=== PATIENT | female | born 1975 | race Caucasian/White ===

== ENCOUNTER 2021-01-19 15:22 | Emergency (ER) | payer MEDICAID, SELFPAY ==
[2021-01-19 15:24] VITALS: BP 141/88; PULSE 77; RESP 16; TEMP 36.9; O2SAT 96; BMI 46.5
[2021-01-19 16:00] VITALS: BP 141/88; PULSE 77; RESP 16; TEMP 36.9; O2SAT 96; BMI 46.6
--- NOTE | 2021-01-19 17:11 | HMH.EDUTC ---
[facility] Disposition Clinical Impression: Laceration of right middle finger Qualifiers: Encounter type: initial encounter Damage to nail status: without damage Foreign body presence: without foreign body Qualified Code(s): S61.212A - Laceration without foreign body of right middle finger without damage to nail, initial encounter Disposition: Home, Self-Care Condition on Discharge: Good Instructions: How to Care for a Laceration After Repair, DI for Laceration Repair -- Simple Additional Instructions: Keep the wound clean and dry. Keep a dressing on it if you are going to be getting it dirty. Watch the for signs of infection, such as redness, swelling, drainage, fever. etc. Take tylenol or ibuprofen for pain. Follow up with your regular doctor. Return in 10 days to have the sutures removed. GO TO THE ER FOR ANY WORSENING SYMPTOMS OR CONCERNS. Prescriptions: cephALEXin [cephALEXin 500mg capsule] 500 mg PO Q6H 10 Days #40 cap Transmission Status: Received by [id number] Referrals: Shiela Manrique [Primary Care Provider] - Time of Disposition: 17:42 Medical Decision Making - Medical Records Medical records reviewed: No: I reviewed the patient's medical records. - Trell Inquiry Pt receiving controlled substance: No Vital Signs: 01/19/21 15:24 01/19/21 16:00 01/19/21 17:45 Temperature 98.4 F 98.4 F 98.4 F Temperature Source Oral Oral Pulse Rate 77 Pulse Rate [Left Radial] 77 77 Respiratory Rate 16 16 16 Blood Pressure 141/88 H Blood Pressure [Left Arm] 141/88 H 141/88 H Blood Pressure Mean [Left Arm] 105 105 Blood Pressure Source [Left Arm] Automatic Cuff Automatic Cuff Blood Pressure Position [Left Arm] Sitting Sitting 02 Sat by Pulse Oximetry 96 96 Oxygen Delivery Method Room Air Room Air Orders (Tests/Meds): ED MEDICATIONS Discontinued Medications Generic Name Dose Route Start Last Admin Trade Name Freq PRN Reason Stop Dose Admin Ibuprofen 800 mg 01/19/21 17:44 01/19/21 17:50 Ibuprofen 400 Mg Tablet PO 01/19/21 17:45 800 mg ONCE ONE Administration [facility] HPI - General Stated complaint: AO cut R finger on open can 1500 Time Seen by Provider: 01/19/21 15:35 Mode of Arrival: Ambulatory Source of Information: Patient Limitations: No Limitations Description of Symptoms (Recalled from Triage Doc. by RN): PATIENT C/O LACERATION TO RIGHT MIDDLE FINGER. STATES SHE CUT IT WHILE OPENING A CAN OF BEANS HEENT Symptoms (Recalled from RN notes): No Resp Symptoms (Recalled from RN notes): No Skin Symptoms (Recalled from RN notes): Yes MS Symptoms (Recalled from RN notes): No Functional Status (Recalled from RN notes): WNL - History of Present Illness Provider Complaint: She was opening a can of beans at home when she slipped and cut her right middle finger. Her tetanus immunization is up to date. - Related Data Previous Rx's Medication Instructions Recorded cephALEXin [cephALEXin 500mg 500 mg PO Q6H 10 Days #40 cap 01/19/21 capsule] Allergies Allergy/AdvReac Type Severity Reaction Status Date / Time No Known Allergies Allergy Verified 01/19/21 16:27 - Worker's Comp Is this a Worker's Comp case?: No [facility] History - Hepatitis A Screen Drug use history?: No High risk sexual behaviors?: No History of sexually transmitted infection?: No Currently employed?: No Childcare worker?: No Do you have indoor plumbing?: Yes Do you have electricity?: Yes Attestation statement:: This patient has been screened for Hepatitis A risk factors. I have reviewed the patient's past medical history: Yes ROS Obtained: Yes All systems reviewed & no additional complaints - Constitutional Constitutional: Denies chills, Denies fever(s) - Eyes Eyes: Denies eye discharge - Musculoskeletal Musculoskeletal: Denies joint pain - Integumentary/Breasts Skin/Breast: Reports as per HPI Physical Exam - General General appearance: alert, in
[2021-01-19 17:45] VITALS: BP 141/88; PULSE 77; RESP 16; TEMP 36.9; O2SAT 96
== END 2021-01-19 17:55 | disposition home or self-care (01) ==
LOC: ER 15:36 → UTC 15:36
PROVIDERS: Emergency Provider Nurse Practitioner Family; PCP Family Medicine
DX: S61.212A Laceration without foreign body of right middle finger without damage to nail, initial encounter (principal); W26.8XXA Contact with other sharp object(s), not elsewhere classified, initial encounter; Y92.010 Kitchen of single-family (private) house as the place of occurrence of the external cause
CPT/HCPCS: 12001; 99202; G0463

== ENCOUNTER 2022-06-09 11:51 | Emergency (ER) | payer MEDICAID, SELFPAY ==
[2022-06-09 12:19] VITALS: BP 174/102; PULSE 71; RESP 18; O2SAT 95; BMI 49.9
--- NOTE | 2022-06-09 12:29 | XR_ITS ---
PROCEDURE INFORMATION: Exam: XR Right Knee Exam date and time: 06/09/2022 12:25 PM Age: 46 years old Clinical indication: Injury or trauma; Fall; Blunt trauma; Patient HX: Obese female patient fell off of porch, right knee pain. TECHNIQUE: Imaging protocol: Radiologic exam of the right knee. Views: 3 views. COMPARISON: No relevant prior studies available. FINDINGS: Bones/joints: No acute fracture or dislocation. Small knee joint effusion. Minimal narrowing of the lateral knee joint space. No significant bony arthritic deformities at the tibiofemoral or patellofemoral joint. There are no lytic skeletal lesions seen. Soft tissues: Soft tissue swelling. No radiopaque foreign bodies. No pathologic soft tissue calcification. IMPRESSION: 1. No acute fracture or dislocation. 2. Small knee joint effusion.
[2022-06-09 12:41] VITALS: BP 174/98; PULSE 71; RESP 18; TEMP 36.8; O2SAT 95; BMI 49.9
--- NOTE | 2022-06-09 12:54 | EXP.UTC ---
Discharge Plan Disposition Patient Disposition: Home, Self-Care Condition: Good Prescriptions Prescriptions: No Action cephalexin 500 MG capsule 500 mg PO Q6H 10 Days Qty: 40 0RF Referrals Follow up/Referrals: Anu Cortés [Primary Care Provider] - See instructions Activity Restrictions/Add. Instructions Additional Instructions/Restrictions: *weight bearing as tolerated *RICE, Rest the extremity, Ice 15-20 minutes 3-4 times daily, Compress- wear the tim wrap as discussed as much as possible to help reduce swelling and pain, Elevate the extremity when at rest *Knee immobilizer is for support and help control swelling, use it except in the shower. Be sure that is not to tight but not to loose either *Elevate when resting? *Ibuprofen 600-800mg every 6-8 hours as needed for pain an inflammation. If need something more can take Tylenol in between doses of Ibuprofen to help if you can take it Follow up with your Family Doctor if no improvement or any worsening of symptoms Clinical Impressions Clinical Impression: Effusion of knee Qualifiers: Laterality: right Qualified Code(s): M25.461 - Effusion, right knee Instructions Patient Instructions: DI for Knee Effusion, Ibuprofen Discharge ED Provider: Radha Dorantes [facility] General Stated complaint: AO@home 06/02 RT knee pain Mode of Arrival: Ambulatory Source of Information: Patient Limitations: No Limitations Time Seen by Provider: 06/09/22 12:54 Description of Symptoms (Recalled from Triage Doc. by RN): fell about a week ago and hurt right knee HEENT Symptoms (Recalled from RN notes): No Resp Symptoms (Recalled from RN notes): No Skin Symptoms (Recalled from RN notes): No MS Symptoms (Recalled from RN notes): Yes Functional Status (Recalled from RN notes): n/a History of Present Illness Provider Complaint: Patient state that she fell about a week ago and fell and hurt her right knee States that she has been having pain in her right knee ever since that is worse when she stands on it or tries to roll over in bed at night States that pain feels like it is inside her knee Related Data Previous Rx's Medication Instructions Recorded cephalexin 500 mg capsule 500 mg PO Q6H 10 days #40 caps 01/19/21 Allergies Allergy/AdvReac Type Severity Reaction Status Date / Time No Known Allergies Allergy Verified 01/19/21 16:27 Worker's Comp Is this a Worker's Comp case?: No [facility] Disclaimer: The information contained in this section may have been updated after the patient was seen, as this information can be updated by other users. Social History Smoking Status: Unknown if ever smoked alcohol intake: never current occupational status: employed Travel in the last 8 weeks: None ROS Obtained: Yes All systems reviewed & no additional complaints except as documented and Yes Systems reviewed as appropriate & no additional complaints except as documented Constitutional Constitutional: Reports system reviewed and no additional complaints, except as documented and Reports as per HPI ENT Ears, Nose, Mouth, and Throat: Reports system reviewed and no additional complaints, except as documented and Reports as per HPI Cardiovascular Cardiovascular: Reports system reviewed and no additional complaints, except as documented and Reports as per HPI Respiratory Respiratory: Reports system reviewed and no additional complaints, except as documented and Reports as per HPI Gastrointestinal Gastrointestingal: Reports system reviewed and no additional complaints, except as documented and as per HPI Musculoskeletal Musculoskeletal: Reports system reviewed and no additional complaints, except as documented and Reports as per HPI Comments: pain in right knee since falling last week Physical Exam General General appearance: alert and in no apparent distress Respiratory Respiratory exam: Present normal lung sounds bilaterally; Absent respiratory distress or wheeze
[2022-06-09 13:48] VITALS: BP 146/74; PULSE 71; RESP 18; TEMP 36.8; O2SAT 95
== END 2022-06-09 13:48 | disposition home or self-care (01) ==
LOC: ER 12:21 → UTC 12:21
PROVIDERS: Emergency Provider Nurse Practitioner; PCP Nurse Practitioner Family
DX: M25.461 Effusion, right knee (principal); W19.XXXA Unspecified fall, initial encounter
CPT/HCPCS: 29505; 73562; 99212; 99214; G0463

== ENCOUNTER 2023-05-21 10:03 | Outpatient (CLI) | payer MEDICAID, SELFPAY ==
--- NOTE | 2023-05-21 10:04 | CA_ITS ---
APPROVED REPORT EXAM: Comprehensive 2D, Doppler, and color-flow Echocardiogram Buzzsaw Operator Helper: Ivon Hathaway RVT Ht: 5 ft 5 in Wt: 296lbs BSA: 2.34 BP: 148/70 mmHg Indications: PRE-OP,HTN,EX SMOKER,OBESITY 2D Dimensions LA Volume 42.50 mL LA Volume Index 18.16 mL/m2 (M/F) 16-34 M-Mode Dimensions RVDd 2.95 cm (0.9-2.6) LA Diam 4.45 cm (1.9-4.0) LVDd 4.92 cm (3.5-5.7) LVDs 3.05 cm (3.5-5.7) IVSd 1.50 cm (0.6-1.1) PWd 1.17 cm (0.6-1.1) EF (Teich) 68.00% FS 38.00% EDV (Teich) 113.90 mL TAPSE 2.78 (<1.7) ESV (Teich) 36.40 mL LV Diastology E Decel Time 247 (160-240 msec) E/A Ratio 0.9 Aortic Valve KEVYN Index 1.32 cm2/m2 AoV Peak Jet. 178.0 (50-130 cm/s) AO Peak GR. 12.70 mmHg AO Mean GR. 6.50 (<5 mmHg) AO VTI 38.0 (18-25 cm) KEVYN (VTI) 3.16 (2.5-4.5 cm2) Mitral Valve MV E Max Jet. 86.0 (40-130 cm/s) MV A Velocity 101.0 (40-130 cm/s) E/A Ratio 0.85 MV PHT 72.0 ms Pulmonary Valve PV Peak Velocity 87.0 (50-150 cm/s) Tricuspid Valve TR P. Velocity 295.00 cm/s RAP Estimate 10.00 mmHg RVSP 44.90 mmHg Left Ventricle The left ventricle is normal size. The left ventricular systolic function is normal. The left ventricular ejection fraction is within the normal range. There is increased LV wall thickness. There is normal LV segmental wall motion. Transmitral Doppler flow pattern suggests impaired LV relaxation. LVEF is 55%. Right Ventricle The right ventricle is normal size. The right ventricular systolic function is normal. Atria The left atrium size is normal. The right atrium size is normal. There is no Doppler evidence of interatrial shunt. Aortic Valve The aortic valve opens well. There is no aortic valvular stenosis. Trace aortic regurgitation. Mitral Valve The mitral valve is normal in structure. No evidence of mitral valve stenosis. Trace mitral regurgitation. Tricuspid Valve The tricuspid valve leaflets are thin and pliable. Trace tricuspid regurgitation. There is insufficient TR jet to estimate RVSP. Pulmonic Valve The pulmonary valve is normal in structure. Trace pulmonic regurgitation. Great Vessels The aortic root is normal in size. The ascending aorta is normal in size. IVC is normal in size and collapses >50% with inspiration. Pericardium There is no pericardial effusion. Other Information Study Quality: Fair Conclusion Normal biventricular systolic function. No significant valvular stenosis or regurgitation. Electronically signed by : Davida Bennett MD 05/21/2023 23:59:18
== END 2023-05-21 23:59 ==
LOC: RT 10:04
PROVIDERS: PCP Nurse Practitioner Family; Visit Provider Nurse Practitioner
DX: Z01.810 Encounter for preprocedural cardiovascular examination (principal); I10 Essential (primary) hypertension; Z78.9 Other specified health status
CPT/HCPCS: 93306

== ENCOUNTER 2023-08-26 14:00 | Outpatient (RCR) | payer MEDICAID, SELFPAY | END 2023-08-26 14:05 | disposition home or self-care (01) | LOC: PT 14:00 | PROVIDERS: Visit Provider Orthopaedic Surgery Adult Reconstructive Orthopaedic Surgery | DX: M17.11 Unilateral primary osteoarthritis, right knee (principal) | CPT/HCPCS: 97010; 97014; 97016; 97110; 97140; 97163; 97164; 97530; G0283 ==

== ENCOUNTER 2023-12-29 08:51 | Outpatient (CLI) | payer MEDICAID, SELFPAY ==
--- NOTE | 2023-12-29 09:11 | US_ITS ---
FINAL REPORT TECHNIQUE: Ultrasound images of the abdomen were obtained. CLINICAL HISTORY: ABD PAIN COMPARISON: None FINDINGS: The pancreas is obscured by bowel gas. The liver is unremarkable. The gallbladder is unremarkable. The common duct is normal. The right kidney measures 11.4 cm in length and is normal in echogenicity without hydronephrosis. The left kidney measures 12.8 cm in length and is normal in echogenicity without hydronephrosis. The spleen is unremarkable. The aorta is normal in caliber. The vena cava is unremarkable. IMPRESSION: Fatty infiltration of the liver. Pancreas is obscured by overlying bowel gas. Reviewed, Interpreted and Dictated by Cornelio Pace MD Transcribed by Carmelita Carvalho Authenticated and [facility]
== END 2023-12-29 23:59 | disposition home or self-care (01) ==
LOC: RAD 08:52
PROVIDERS: PCP Nurse Practitioner Family; Visit Provider Nurse Practitioner Family
DX: R10.11 Right upper quadrant pain (principal)
CPT/HCPCS: 76700

== ENCOUNTER 2024-09-28 10:52 | Outpatient (CLI) | payer MEDICAID, SELFPAY ==
--- OUTSIDE RECORDS SUMMARY | 2022-08-11 20:00 | XMS_ITS | Continuity of Care Document ---
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 Name Role Phone Kerry Smith PT Unavailable Unavailable Allergies, Adverse Reactions, Alerts Substance Reaction Status Criticality No Known allergies Medications Medication Instructions Dosage Effective Dates (start - stop) Status Comments ibuprofen 600 mg tablet take 1 tablet by oral route 2 times every day with food 600 MG - Active meloxicam 15 mg tablet take 1 tablet by oral route every day 15 MG - Active Procedures Procedure Date Neuromuscular re-edu Physical Tx exercise PT EVAL LOW COMPLEX 20 MIN Physical Tx exercise Neuromuscular re-edu Office/outpatient visit,est, mod 2022 Ko elas w/ condyle pads & elier Office/outpatient visit,new, mod 2022 Advance Directives Directive Yes / No Effective Date File Name No Information Encounters Encounter Description Practice Location Reason(s) For Visit Diagnoses Date Provider Providers Copied on Encounter [facility], [facility] [place], [address], [place] tel:[phone] No Information 3 Sarah Payne. [address] [place], [place], [id number], [place]. tel:[phone] [facility], [address] [place], [address], [place] tel:[phone] [facility] [place] [facility] Hal[address] Capellan Unsp tear of unsp meniscus, current injury, right knee, subs 3 Mable Longoria. [address] [place], [place], [id number], . tel:[phone] Referring Provider: Ran Rogers, [address] [place], [address] . tel:[phone] [facility], [address] [place] [address], [facility], tel:[phone] [facility] Hal[address] Capellan Unsp tear of unsp meniscus, current injury, right knee, subs 3 Mable Longoria. [address] [place], [place], [id number], [place]. tel:[phone] Referring Provider: Ran Rogers, [address] [place] [address], [address] . tel:[phone] Office/outpat ient visit,est, mod [facility], [address] [place] [address], [facility], [place] tel:[phone] Debra Foss Timi Pain in right knee 3 Aries Tong. [address] [place] [address], [id number], [place]. tel:[phone] Referring Provider: Ran Rogers, [address] [place] [address], [address] . tel:[phone] [facility], [address] [place] [address], [facility], [place] tel:[phone] [place] [facility] No Information 3 Aries Tong. [address] [place] [address], [id number], [place]. tel:[phone] Referring Provider: Ran Rogers, [address] [place] [address], [id number] . tel:[phone] Office/outpat ient visit,new, [facility] [address], [address], tel:[phone] Neda Capellan Pain in right knee 3 Aries Tong. [address], [place], [id number], [place]. tel:[phone] Referring Provider: Ran Rogers, [address] [place], [address] . tel:[phone] Family History Family Member Type Diagnosis Age At Onset Mother Problem (finding) Family history of Osteo arthritis Mother Problem (finding) Renal disease Mother Problem (finding) Family history of Scoli osis Mother Problem (finding) Thyroid disorder Mother Problem (finding) Hypertension Payers Payer name Insurance type Covered constitution party ID Enid briones(s) [employer] Plan - [id number] Social History Type Description Quantity Date Captured Comments Sex Female Smoking Status No Information Chief Complaint And Reason For Visit No Information Reason For Referral Reason For Referral No Information Plan Of Treatment Date Type Action Status Future Order: Radiology Order MR I Knee WO Contrast ([id number]), Ordered on: Ordered History Of Present Illness Encounter Date Complaint History Of Prese nt Illness knee Functional Status Date Functional Assessmen t No Information Instructions Date Instruction Additional Infor mation No Information Assessments Type Assessment Date No Information Patient Care Teams Name Effective Dates (start - stop) Status Members No Information
--- OUTSIDE RECORDS SUMMARY | 2024-09-28 05:30 | XMS_ITS | Continuity of Care Document ---
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 Name Role Phone Tra MASTERSON, FOREIGN EXCHANGE POSITION CLERK, Kerry Unavailable Unavai lable Allergies, Adverse Reactions, Alerts Substance Reaction Status Criticality adhesive tape ItchingSkin rash Active No Informa tion Medications Medication Instructions Dosage Effective Dates (start - stop) Status Comments triamcinolone acetonide 0.1 % topical cream apply by topical route 2 times every day a thin layer to the affected area(s) 0.00 - Active Ozempic 1 mg/dose (4 mg/3 mL) subcutaneous pen injector inject (1MG) by subcutaneous route every week on the same day of each week 1 MG - Active prednisone 10 mg tablets in a dose pack Take 6 tablets on day 1 via oral route, then 5 tabs on day 4, 4 tabs on day 3, 3 tabs on day 4, 2 tabs on day 5 and one tab on day 6. All doses should be taken with food. - Active VITAMIN D3 50 MCG (2000 UT) 50 MCG Capsule Take 1 Capsule by mouth once daily. - Active JARDIANCE 10 MG TABLET 10 Tablet TAKE 1 TABLET BY MOUTH EVERY MORNING - Active metformin ER 500 mg tablet,extended release 24 hr take 1 tablet by oral route every day with the evening meal 500 MG - Active montelukast 10 mg tablet take 1 tablet by oral route every day in the evening 10 MG - Active lisinopril 40 mg tablet Take 1 Tablet by mouth once daily. - Active amlodipine 10 mg tablet Take 1 Tablet by mouth once daily. - Active levothyroxine 50 mcg tablet Take 1 Tablet by mouth once daily. - Active omeprazole 40 mg capsule,delayed release Take 1 capsule by mouth every day before a meal - Active cetirizine 10 mg tablet take 1 tablet by oral route every day 10 MG - Active Advair Diskus 250 mcg-50 mcg/dose powder for inhalation Use 1 puff 2 times every day approximately 12 hours apart at the same times each day - Active propranolol 20 mg tablet Take 1 Tablet by mouth twice daily. - Active vitamin E 670 mg (1,000 unit) capsule Take one capsule daily - Active True Metrix Glucose Meter To use to check BS at least 3 times daily - Active True Metrix Glucose Test Strip To be used with glucometer to check bs up to 3 times daily - Active Alcohol Pads To use to check bs 3 times daily - Active lancets 33 gauge To be used to check bs up to 3 times daily - Active Ventolin HFA 90 mcg/actuation aerosol inhaler inhale 2 puff by inhalation route every 4 - 6 hours as needed 180 MCG - Active Procedures Procedure Date ROUTINE VENIPUNCTURE Advance Directives Directive Yes / No Effective Date File Name No Information Encounters Encounter Description Practice Location Reason(s) For Visit Diagnoses Date Provider [facility], [address] [place] [address], [facility], tel:[phone] foot foot pain (chief complaint) Type 2 diabetes mellitus without complicationsPain in right footBody mass index [BMI] 45.0-49.9, adult 5 Tra Payne. [address] [place], [place], [id number] , . tel:[phone] [facility], [address] [place] [address], [facility], tel:[phone] [facility] Dysuria (chief complaint) DysuriaBody mass index [BMI] 45.0-49.9, adultType 2 diabetes mellitus without complicationsEssential (primary) hypertension 5 Dutta Kerry. [address] [place], [place], [id number] , . tel: [phone] [facility], [address] [place] [address], [facility], tel:[phone] [facility] No Information 5 Dutta Kerry. [address] [place], [place], [id number] , . tel: [phone] [facility], [address] [place] [address], [facility], tel:[phone] [facility] No Information 5 Dutta Kerry. [address] [place], [place], [id number] , [place]. tel: [phone] [place] [address], [address] [place] [address], [facility], tel:[phone] [facility] f/u labs (chief complaint) COPDEssential (primary) hypertensionIron deficiency anemia, unspecifiedNASHObesity, unspecifiedType 2 diabetes mellitus without complicationsVitamin B12 deficiencyVitamin D deficiencyBody mass index [BMI] 45.0-49.9, adult 5 Dutta Kerry. [address] [place], [place], [address] , [place]. tel: [phone] [place] [address], [address] [place] [address], [facility], tel:[phone] [facility] Fasting Labs (chief complaint) Essential (primary) hypertension 5 Dutta Kerry. [address] [place], [place], [address] , [place]. tel: [phone] [facility], [address] [place] [address], [facility], tel:[phone] f/u medication (chief complaint) Obesity, unspecifiedCOPDEssential (primary) hypertensionNASHType 2 diabetes mellitus without complicationsUmbilical hernia without obstruction or gangrene 5 Dutta Kerry. [address] [place], [place], [address] , [place]. tel: [phone] [facility], [address] [place] [address], [facility], tel:[phone] [facility] f/u labs and bp (chief complaint) Body mass index [BMI] 50.0-59.9, adultNASHObesityType 2 diabetes mellitus without complicationsVitamin D deficiencyEssential (primary) hypertension 5 Dutta Kerry. [address] [place], [place], [address] , [place]. tel: [phone] [facility], [address] [place] [address], [facility], tel:[phone] [facility]ONNYTHI[facility]DUL[facility]IZ Possible Hernia (chief complaint) Abdominal painExtreme povertyUnemployment, unspecifiedUmbilical hernia without obstruction or gangreneType 2 diabetes mellitus without complicationsEssential (primary) hypertensionNASHPrediabe anjum 5 Dutta Kerry. [address] [place], [place], [address] , [place]. tel: [phone] [facility], [address] [place] [address], [facility], [place] tel:[phone] [facility] FOLLOW UP ON LABS (chief complaint) Body mass index [BMI] 36.0-36.9, adultCOPDEncounter for immunizationEssential (primary) hypertensionHypothyroidi sm, unspecifiedObesityPredia betesVitamin B12 deficiencyVitamin D deficiencyIron deficiency anemia, unspecifiedRUQ painEncounter for screening for malignant neoplasm of colon 4 Tra Pintoissa. [address] [place], [place], [id number] , . tel:[phone] [facility], [address] [place] [address], [facility], tel:[phone] [facility] fasting labs (chief complaint) Essential (primary) hypertension 4 Duttazechariah Pintoissa. [address] [place], [place], [address] , [place]. tel: [phone] [facility], [address] [place] [address], [facility], tel:[phone] [facility] f/u labs (chief complaint) Body mass index [BMI] 50.0-59.9, adultHyperkalemiaEssenti al (primary) hypertensionAcute renal injury 4 Tra Pintoissa. [address] [place], [place], [address] , [place]. tel: [phone] [facility], [address] [place] [address], [facility], [place] tel:[phone] [facility] Depression Screening (chief complaint)f /u labs/pap (chief complaint)f /u h.pylori (chief complaint) Encounter for screening for depressionPrediabetesHyp othyroidism, unspecifiedEssential (primary) hypertensionVitamin B12 deficiencyObesityBody mass index [BMI] 45.0-49.9, adult 4 Duttazechariah Pintoissa. [address] [place], [place], [address] , [place]. tel: [phone] [address], [facility], [place] tel:[phone] [facility] epigastric pain (chief complaint)w omen's health exam (chief complaint) H. pylori as the cause of diseases classified elsewhereEncntr for manager summer exam (general) (routine) w/o abn findingsEncntr screen for infections w sexl mode of transmissEncounter for screening for malignant neoplasm of cervixAbdominal painBody mass index [BMI] 45.0-49.9, adult Darron- 4 Dutta Kerry. [address] [place], [place], [address] , [place]. tel: [phone] [facility], [address] [place] [address], [facility], tel:[phone] [facility] Follow up on labs (chief complaint) PrediabetesEssential (primary) hypertensionNASHVitamin B12 deficiencyBody mass index [BMI] 50.0-59.9, adult 4 Dutta Kerry. [address] [place], [place], [address] , [place]. tel: [phone] [facility], [address] [place] [address], [facility], tel:[phone] [facility] RIT[facility] f/u BP (chief complaint) Body mass index [BMI] 50.0-59.9, adultEssential (primary) hypertensionNicotine dependence, cigarettes, in remissionVitamin B12 deficiencyCOPD 4 Dutta Kerry. [address] [place], [place], [address] , [place]. tel:[phone] [facility], [address] [place] [address], [facility], tel:[phone] [facility] ANGEL[facility] FOLLOW UP ON BP (chief complaint) Extreme povertyUnemployment, unspecifiedEssential (primary) hypertensionPrediabetesV itamin B12 deficiencyBody mass index [BMI] 50.0-59.9, adult May-0 4 Dutta Kerry. [address] [place], [place], [address] , . tel: [phone] [facility], [address] [place] [address], [facility], tel:[phone] [facility] congestion/ fever (chief complaint) Acute sinusitis, unspecifiedEssential (primary) hypertensionBody mass index [BMI] 45.0-49.9, adult Apr- 4 Dutta Kerry. [address] [place], [place], [address] , [place]. tel: [phone] [facility], [address] [place] [address], [facility], tel:[phone] [facility] Follow up on BP (chief complaint) Essential (primary) hypertensionBody mass index [BMI] 45.0-49.9, adultObesity Apr- 4 Dutta Kerry. [address] [place], [place], [address] , [place]. tel: [phone] [place] [address], [address] [place] [address], [facility], tel:[phone] [facility] surgical clearance exam (chief complaint) Abnormal EKGBody mass index [BMI] 50.0-59.9, adultObesityEssential (primary) hypertensionHypothyroidi sm, unspecifiedNicotine dependence, cigarettes, in remission Apr-0 4 Dutta Kerry. [address] [place], [place], [address] , [place]. tel: [phone] [place] [address], [address] [place] [address], [facility], tel:[phone] [facility] B12 INJECTION (chief complaint) Vitamin B12 deficiency 3 Dutta Kerry. [address] [place], [place], [id number] , [place]. tel: [phone] [facility], [address] [place] [address], [facility], tel:[phone] [facility] B12 INJECTION (chief complaint) Vitamin B12 deficiency 3 Dutta Kerry. [address] [place], [place], [address] , [place]. tel: [phone] [facility], [address] [place] [address], [facility], [place] tel:[phone] [facility] B12 INJECTION (chief complaint) Vitamin B12 deficiency 3 Dutta Kerry. [address] [place], [place], [address] , [place]. tel: [phone] [facility], [address] [place] [address], [facility], tel:[phone] [facility] B12 INJECTION (chief complaint) Vitamin B12 deficiency 3 Dutta Kerry. [address] [place], [place], [address] , [place]. tel: [phone] [facility], [address] [place] [address], [facility], [place] tel:[phone] [facility] f/u labs (chief complaint) Vitamin B12 deficiencyCOPDEssential (primary) hypertensionObesityUmbil ical hernia w/o obstructionNASHBody mass index [BMI] 45.0-49.9, adult Nov 3 Dutta Kerry. [address] [place], [place], [address] , [place]. tel: [phone] [facility], [address] [place] [address], [facility], [place] tel:[phone] [facility] No Information 3 Dutta Kerry. [address] [place], [place], [address] , [place]. tel: [phone] [facility], [address] [place] [address], [facility], tel:[phone] [employer] [facility] FULLERGABRIEL New to establish care (chief complaint) Encntr screen for dis of the bld/bld-form org/immun mechnsmEncounter for screening for depressionEncounter for screening examination for other mental health and behavioral disordersEssential (primary) hypertensionPrediabetesN icotine dependence, cigarettes, uncomplicatedEncounter for immunizationCOPDHypothyr oidism, unspecifiedVitamin D deficiencyGERD disease w/ esophagitis, w/o bleedingObesityOther seasonal allergic rhinitisBody mass index [BMI] 45.0-49.9, adult 3 Duttazechariah Payne. [address] [place] [address], [address] [place] [address] , . tel: [phone] [facility], [address] [place] [address], [facility], tel:[phone] [email or web address] [facility] JONNY[facility] created in error- (chief complaint) Encounter for screening for depression 3 Tra Payne. [address] [place] [address], [address] [place] [address] , . tel: [phone] Family History Family Member Type Diagnosis Age At Onset Maternal grandmother Problem Diabetes mellitus Brother Problem Cancer, liver Brother Problem Alive and well Paternal grandmother Problem (finding) Paternal grandfather Problem (finding) Father Problem Alive and well Brother Problem DRUG ADDICTION-P T DOES NOT HAVE CONTACT AT THIS TIME WITH [facility] Maternal grandmother Problem Hypertension Brother Problem Cancer, colon Sister Problem Alive and well Son Problem Alive and well Son Problem Alive and well Brother Problem stomach cancer 44 Mother Problem Kidney disease Maternal grandfather Problem (finding) Sister Problem Alive and well Maternal grandfather Problem Cancer, lung Daughter Problem DRUG OVERDOSE Methamphetamin e Mother Problem KIDNEY FAILURE Daughter Problem Alive and well Immunizations Vaccine Date Status Comments SARS-COV-2 (COVID-19) vaccin e, mRNA, spike protein, LNP, bivalent booster, preservative free, 50 mcg/0.5 mL or 25 mcg/0.25 mL dose (Moderna) refused Source: New I mmunization Record Influenza Inj MDCK P-Free administered So urce: Other Registry Influenza Flulaval administered Source: N ew Immunization Record Influenza, UF administered Source: Other Registry COVID-19 mRNA (MOD) administered Source: Other Registry COVID-19 mRNA (MOD) administered Source: Other Registry PPV23 administered Source: Other R egistry Influenza Quad Inj administered Source: O ther Registry Influenza Quad Inj administered Source: O ther Registry Influenza, UF administered Source: Other Registry Flu MDCK Quad P-Free Inj administered Meli rce: Other Registry Influenza Quad Inj administered Source: O ther Registry Influenza Quad Inj administered Source: O ther Registry Influenza, Seasonal administered Source: Other Registry Influenza, Seasonal administered Source: Other Registry Influenza, Seasonal administered Source: Other Registry Tdap, Adsorbed administered Source: Other Registry Influenza, Seasonal administered Source: Other Registry Payers Payer name Insurance type Covered constitution party ID Authoriza tion(s) Formerly [facility]- Medicaid Passport [place] CI [id number] Formerly [facility]- Medicaid Passport [employer] Payer [id number] Formerly [facility]- Medicaid [employer] [place] [id number] Formerly [facility]- Medicaid [employer] Payer [id number] Formerly [facility]- Medicaid [employer] [place] [id number] Formerly [facility]- Medicaid [employer] Payer [id number] Formerly [facility]- Covered Under [place] [id number] Social History Type Description Quantity Date Captured Comments Alcohol Use Details Unknown Caffeine Use Details Unknown Tobacco Use Status No Information Smoking Status No Information Sex Female Sexual Orientation Straight or heterosexual Dec Gender Identity Female Vital Signs Date / Time: Height Weight BMI Pulse Rate Blood Pressure Temperature Respiratory Rate Body Surface Area Head Circumference Head Circ. Percentile Wt./Heladio. Percentile BMI percentile Pulse Ox Inhaled Ox 9:27 AM 65.00 in 132.086 kg (291.20 lbs) 48.4 6 kg/m eter (2) 70 /min 132/87 mm[Hg] 97.90 F 18 /min 2.46 meter(2) 97 % Chief Complaint And Reason For Visit From encounter dated 09/28/2024 09:30'. foot foot pain (chief complaint). Description: right foot pain (on the right heel) x 3 weeks.Sharp shooting painno injuryworse when standingworse when she gets out of bednot taking anything for ithastried ibuprofen, but did not helpwill try Prednisone dose pack if xray is neg for bone spur. Possible plantar fasciitis.instructed on ice application and proper fitting shoes. DM foot exam today- needs DM shoes- will send to [facility] will have fasting labs today rash left arm x 2 weeks- possible poison ivywill send triamcinalonewash skin and bed linens in hot water and clothing worn that daywill f/u in 2 weeks Plan Of Treatment Date Type Action Status Goal Lipid 9-11 y due Goal Lipid 17-20 y due Goal Lipid panel. Due on due Goal Foot exam. Due on due Goal PAP. Due on due Goal Dilated eye exam. Due on Sep due Goal Depression scree yosi. Due on due Goal CBC. Due on due Goal Vitamin B12. Due on due Goal HPV testing. Due on due Goal Generalized Anxi ety Disorder - 7 (MADHURI-7). Due on due Goal Obtain Height, W eight, and BMI. Due on due Goal GFR. Due on due Goal TSH. Due on due Goal Vitamin D. Due on due Goal Dental exam. Due on due Goal ECG due Goal Pap/HPV testing. Due on due Goal Obtain blood Pre ssure. Due on due Goal CMP. Due on due Goal Hematocrit/Hemog lobin. Due on due Goal Tobacco screening. Due on due Goal Urine microalbumin. Due on A due Goal Hep B (). Due on due Goal ASCVD 10 year risk. Due on A due Goal Taking Statin Me dication. Due on due Goal Pneumococcal vaccine due Goal Diabetes screening. Due on due Goal Urinalysis due Goal Follow up Plan f or abnormal BMI (Less than 18.5, greater than 25). Due on due Goal Hemoglobin (Pree maida/HR 9 months). Due on due Goal Drug Abuse Scree yosi Test (DAST-10). Due on due Goal Unhealthy drug use screening due Goal HIV screen due Goal Hepatitis C Screening due Goal Tobacco Use Scre ening. Due on due Goal Influenza vaccine. Due on due Goal HPV. Due on due Goal Lifestyle education regardin g diet completed Goal Hep B (1st). Due on due Goal Influenza vaccine. Due on due Goal Vitamin D. Due on due Goal Tobacco screening. Due on due Goal HIV screen due Goal HPV testing. Due on due Goal Tobacco Use Scre ening. Due on due Goal Foot exam. Due on due Goal Pneumococcal vaccine due Goal Urinalysis due Goal Generalized Anxi ety Disorder - 7 (MADHURI-7). Due on due Goal ECG due Goal HPV. Due on due Goal Hemoglobin (Pree maida/HR 9 months). Due on due Goal PAP. Due on due Goal ASCVD 10 year risk. Due on due Goal Obtain blood Pre ssure. Due on due Goal Unhealthy drug use screening due Goal Drug Abuse Scree yosi Test (DAST-10). Due on due Goal Vitamin B12. Due on 026 due Goal Hematocrit/Hemog lobin. Due on due Goal TSH. Due on due Goal Obtain Height, W eight, and BMI. Due on due Goal CMP. Due on due Goal Dilated eye exam. Due on Aug due Goal Lipid panel. Due on due Goal Taking Statin Me dication. Due on due Goal Depression scree yosi. Due on due Goal Pap/HPV testing. Due on due Goal Diabetes screening. Due on due Goal Hemoglobin A1C. Due on due Goal GFR. Due on due Goal Hepatitis C Screening due Goal Follow up Plan f or abnormal BMI (Less than 18.5, greater than 25). Due on due Goal CBC. Due on due Goal Dental exam. Due on due Goal Urine microalbumin. Due on due Goal Lifestyle education regardin g diet completed Goal Urinalysis due Goal Unhealthy drug use screening due Goal Dental exam. Due on due Goal Vitamin B12. Due on due Goal Tobacco screening. Due on due Goal Hepatitis C Screening due Goal HPV testing. Due on due Goal Urine microalbumin. Due on due Goal ECG due Goal HIV screen due Goal CBC. Due on due Goal Diabetes screening. Due on due Goal Depression scree yosi. Due on due Goal TSH. Due on due Goal Hemoglobin A1C. Due on due Goal Obtain blood Pre ssure. Due on due Goal CMP. Due on due Goal Pneumococcal vaccine due Goal Influenza vaccine. Due on due Goal Taking Statin Me dication. Due on due Goal Drug Abuse Scree yosi Test (DAST-10). Due on due Goal Foot exam. Due on due Goal Tobacco Use Scre ening. Due on due Goal Hep B (). Due on due Goal Pap/HPV testing. Due on due Goal ASCVD 10 year risk. Due on due Goal Generalized Anxi ety Disorder - 7 (MADHURI-7). Due on due Goal Obtain Height, W eight, and BMI. Due on due Goal Dilated eye exam. Due on June due Goal Lipid panel. Due on due Goal GFR. Due on due Goal HPV. Due on due Goal PAP. Due on due Goal Follow up Plan f or abnormal BMI (Less than 18.5, greater than 25). Due on due Goal Vitamin D. Due on due Goal Lifestyle education regardin g diet completed Goal Unhealthy drug use screening due Goal Obtain Height, W eight, and BMI. Due on due Goal Drug Abuse Scree yosi Test (DAST-10). Due on due Goal Generalized Anxi ety Disorder - 7 (MADHURI-7). Due on due Goal Hepatitis C Screening due Goal HPV testing. Due on due Goal Dental exam. Due on due Goal CBC. Due on due Goal Follow up Plan f or abnormal BMI (Less than 18.5, greater than 25). Due on due Goal Dilated eye exam. Due on June due Goal Vitamin B12. Due on due Goal Influenza vaccine. Due on due Goal Vitamin D. Due on due Goal Lipid panel. Due on due Goal ECG due Goal Pneumococcal vaccine due Goal Urinalysis due Goal PAP. Due on due Goal Tobacco screening. Due on due Goal Foot exam. Due on due Goal Diabetes screening. Due on due Goal Hemoglobin A1C. Due on due Goal Urine microalbumin. Due on due Goal Tobacco Use Scre ening. Due on due Goal TSH. Due on due Goal GFR. Due on due Goal Obtain blood Pre ssure. Due on due Goal Hep B (1st). Due on due Goal HPV. Due on due Goal HIV screen due Goal ASCVD 10 year risk. Due on due Goal Depression scree yosi. Due on due Goal Taking Statin Me dication. Due on due Goal Pap/HPV testing. Due on due Goal CMP. Due on due Goal Obtain blood Pre ssure. Due on due Goal Unhealthy drug use screening due Goal Generalized Anxi ety Disorder - 7 (MADHURI-7). Due on due Goal Urine microalbumin. Due on A due Goal PAP. Due on due Goal Pap/HPV testing. Due on due Goal ASCVD 10 year risk. Due on A due Goal Vitamin D. Due on due Goal Drug Abuse Scree yosi Test (DAST-10). Due on due Goal Lipid panel. Due on due Goal Vitamin B12. Due on due Goal Foot exam. Due on due Goal Pneumococcal vaccine due Goal HIV screen due Goal Obtain Height, W eight, and BMI. Due on due Goal Dental exam. Due on due Goal Tobacco Use Scre ening. Due on due Goal Taking Statin Me dication. Due on due Goal Urinalysis due Goal TSH. Due on due Goal Hemoglobin A1C. Due on due Goal Depression scree yosi. Due on due Goal CMP. Due on due Goal Diabetes screening. Due on due Goal CBC. Due on due Goal HPV. Due on due Goal HPV testing. Due on due Goal Follow up Plan f or abnormal BMI (Less than 18.5, greater than 25). Due on due Goal Hep B (). Due on due Goal Influenza vaccine. Due on due Goal GFR. Due on due Goal Hepatitis C Screening due Goal ECG due Goal Tobacco screening. Due on Ap due Goal Dilated eye exam. Due on May due Goal Lifestyle education regardin g diet completed Goal Follow up Plan f or abnormal BMI (Less than 18.5, greater than 25). Due on due Goal Generalized Anxi ety Disorder - 7 (MADHURI-7). Due on due Goal ASCVD 10 year risk. Due on due Goal GFR. Due on due Goal Pneumococcal vaccine due Goal Vitamin B12. Due on due Goal Drug Abuse Scree yosi Test (DAST-10). Due on due Goal PAP. Due on due Goal HIV screen due Goal Urinalysis due Goal CBC. Due on due Goal Depression scree yosi. Due on due Goal Dilated eye exam. Due on Apr due Goal Hepatitis C Screening due Goal Obtain blood Pre ssure. Due on due Goal Urine microalbumin. Due on due Goal Dental exam. Due on due Goal CMP. Due on due Goal ECG due Goal Vitamin D. Due on due Goal Taking Statin Me dication. Due on due Goal TSH. Due on due Goal HPV testing. Due on due Goal Tobacco Use Scre ening. Due on due Goal Influenza vaccine. Due on due Goal Hep B (). Due on due Goal Obtain Height, W eight, and BMI. Due on due Goal Tobacco screening. Due on due Goal Hemoglobin A1C. Due on due Goal Pap/HPV testing. Due on due Goal Diabetes screening. Due on due Goal Lipid panel. Due on 026 due Goal Unhealthy drug use screening due Goal HPV. Due on due Goal Foot exam. Due on due Goal Lifestyle education regardin g diet completed Goal Tobacco screening. Due on due Goal Urine microalbumin. Due on due Goal Dental exam. Due on due Goal Dilated eye exam. Due on Mar due Goal Hemoglobin A1C. Due on due Goal ASCVD 10 year risk. Due on due Goal GFR. Due on due Goal Hep B (). Due on due Goal Foot exam. Due on due Goal Taking Statin Me dication. Due on due Goal Mammogram. Due on due Goal Depression scree yosi. Due on due Goal Influenza vaccine. Due on due Goal PAP. Due on due Goal Unhealthy drug use screening due Goal HPV. Due on due Goal Pneumococcal vaccine due Goal HIV screen due Goal CMP. Due on due Goal Lipid panel. Due on 026 due Goal Drug Abuse Scree yosi Test (DAST-10). Due on due Goal Obtain Height, W eight, and BMI. Due on due Goal CBC. Due on due Goal TSH. Due on due Goal Obtain blood Pre ssure. Due on due Goal ECG due Goal HPV testing. Due on 025 due Goal Vitamin B12. Due on 026 due Goal Colonoscopy. Due on due Goal Hepatitis C Screening due Goal Tobacco Use Scre ening. Due on due Goal Generalized Anxi ety Disorder - 7 (MADHURI-7). Due on due Goal Follow up Plan f or abnormal BMI (Less than 18.5, greater than 25). Due on due Goal Diabetes screening. Due on due Goal Pap/HPV testing. Due on due Goal Vitamin D. Due on due Goal Urinalysis due Goal Depression scree yosi. Due on due Goal Colonoscopy. Due on due Goal TSH. Due on due Goal Obtain Height, W eight, and BMI. Due on due Goal Follow up Plan f or abnormal BMI (Less than 18.5, greater than 25). Due on due Goal CMP. Due on due Goal PAP. Due on due Goal Obtain blood Pre ssure. Due on due Goal Diabetes screening. Due on due Goal Tobacco Use Scre ening. Due on due Goal Influenza vaccine. Due on due Goal Unhealthy drug use screening due Goal HPV testing. Due on 024 due Goal Hepatitis C Screening due Goal Mammogram. Due on 3 due Goal Tobacco Use Cess ation Counseling. Due on due Goal Pap/HPV testing. Due on due Goal HIV screen due Goal Vitamin D. Due on 5 due Goal HPV. Due on due Goal Lipid panel. Due on 029 due Goal Drug Abuse Scree yosi Test (DAST-10). Due on due Goal CBC. Due on due Goal ECG due Goal Pneumococcal vac cine. Due on due Goal Generalized Anxi ety Disorder - 7 (MADHURI-7). Due on due Goal Urinalysis due Goal Vitamin B12. Due on due Goal Lifestyle education regardin g diet completed Goal Depression scree yosi. Due on due Goal Obtain blood Pre ssure. Due on due Goal Colonoscopy. Due on 032 due Goal Vitamin D. Due on 5 due Goal Vitamin B12. Due on 025 due Goal Pap/HPV testing. Due on due Goal Hepatitis C Screening due Goal Influenza vaccine. Due on due Goal TSH. Due on due Goal Drug Abuse Scree yosi Test (DAST-10). Due on due Goal ECG due Goal CBC. Due on due Goal Follow up Plan f or abnormal BMI (Less than 18.5, greater than 25). Due on due Goal HIV screen due Goal Urinalysis due Goal Lipid panel. Due on due Goal Diabetes screening. Due on O due Goal HPV. Due on due Goal Unhealthy drug use screening due Goal Obtain Height, W eight, and BMI. Due on due Goal PAP. Due on due Goal Tobacco Use Cess ation Counseling. Due on due Goal Pneumococcal vac cine. Due on due Goal CMP. Due on due Goal HPV testing. Due on due Goal Tobacco Use Scre ening. Due on due Goal Mammogram. Due on due Goal Generalized Anxi ety Disorder - 7 (MADHURI-7). Due on due Goal Lipid panel. Due on 029 due Goal Colonoscopy. Due on 032 due Goal Follow up Plan f or abnormal BMI (Less than 18.5, greater than 25). Due on due Goal HPV. Due on due Goal Depression scree yosi. Due on due Goal Hepatitis C Screening due Goal Obtain Height, W eight, and BMI. Due on due Goal Generalized Anxi ety Disorder - 7 (MADHURI-7). Due on due Goal Mammogram. Due on 3 due Goal Vitamin B12. Due on 025 due Goal Obtain blood Pre ssure. Due on due Goal Diabetes screening. Due on A due Goal CBC. Due on due Goal Urinalysis due Goal Pneumococcal vac cine. Due on due Goal HPV testing. Due on 024 due Goal TSH. Due on due Goal CMP. Due on due Goal Pap/HPV testing. Due on due Goal Tobacco Use Cess ation Counseling. Due on due Goal Drug Abuse Scree yosi Test (DAST-10). Due on due Goal ECG due Goal Tobacco Use Scre ening. Due on due Goal Influenza vaccine. Due on due Goal PAP. Due on due Goal Unhealthy drug use screening due Goal HIV screen due Goal Vitamin D. Due on 5 due Goal Lifestyle education regardin g diet completed Goal Colonoscopy. Due on 032 due Goal ECG due Goal Depression scree yosi. Due on due Goal Pap/HPV testing. Due on due Goal Unhealthy drug use screening due Goal HPV. Due on due Goal Follow up Plan f or abnormal BMI (Less than 18.5, greater than 25). Due on due Goal Mammogram. Due on due Goal Influenza vaccine. Due on due Goal Generalized Anxi ety Disorder - 7 (MADHURI-7). Due on due Goal PAP. Due on due Goal HIV screen due Goal CBC. Due on due Goal Drug Abuse Scree yosi Test (DAST-10). Due on due Goal Tobacco Use Cess ation Counseling. Due on due Goal Obtain Height, W eight, and BMI. Due on due Goal Vitamin D. Due on 5 due Goal HPV testing. Due on 024 due Goal Urinalysis due Goal Hepatitis C Screening due Goal Lipid panel. Due on 029 due Goal Pneumococcal vac cine. Due on due Goal Diabetes screening. Due on A due Goal CMP. Due on due Goal Vitamin B12. Due on 025 due Goal Obtain blood Pre ssure. Due on due Goal TSH. Due on due Goal Tobacco Use Scre ening. Due on due Goal Lifestyle education regardin g diet completed Goal Depression scree yosi. Due on due Goal ECG due Goal Lipid panel. Due on 029 due Goal Follow up Plan f or abnormal BMI (Less than 18.5, greater than 25). Due on due Goal Vitamin B12. Due on 025 due Goal Mammogram. Due on 3 due Goal Vitamin D. Due on 5 due Goal Urinalysis due Goal Unhealthy drug use screening due Goal Obtain blood Pre ssure. Due on due Goal HPV. Due on due Goal CMP. Due on due Goal TSH. Due on due Goal HIV screen due Goal Pap/HPV testing. Due on due Goal Influenza vaccine. Due on due Goal Pneumococcal vac cine. Due on due Goal Obtain Height, W eight, and BMI. Due on due Goal CBC. Due on due Goal HPV testing. Due on 024 due Goal Drug Abuse Scree yosi Test (DAST-10). Due on due Goal Generalized Anxi ety Disorder - 7 (MADHURI-7). Due on due Goal PAP. Due on due Goal Colonoscopy. Due on 032 due Goal Tobacco Use Scre ening. Due on due Goal Hepatitis C Screening due Goal Diabetes screening. Due on A due Goal Tobacco Use Cess ation Counseling. Due on due Goal Lifestyle education regardin g diet completed Goal Vitamin B12. Due on 025 due Goal Obtain blood Pre ssure. Due on due Goal Hepatitis C Screening due Goal CBC. Due on due Goal Drug Abuse Scree yosi Test (DAST-10). Due on due Goal Generalized Anxi ety Disorder - 7 (MADHURI-7). Due on due Goal Pap/HPV testing. Due on due Goal Lipid panel. Due on 029 due Goal Tobacco Use Scre ening. Due on due Goal Influenza vaccine. Due on due Goal Follow up Plan f or abnormal BMI (Less than 18.5, greater than 25). Due on due Goal PAP. Due on due Goal Mammogram. Due on 3 due Goal HPV. Due on due Goal Obtain Height, W eight, and BMI. Due on due Goal HPV testing. Due on 024 due Goal Vitamin D. Due on 5 due Goal Tobacco Use Cess ation Counseling. Due on due Goal Pneumococcal vac cine. Due on due Goal Diabetes screening. Due on A due Goal HIV screen due Goal Unhealthy drug use screening due Goal CMP. Due on due Goal Depression scree yosi. Due on due Goal Urinalysis due Goal TSH. Due on due Goal Colonoscopy. Due on 032 due Goal ECG due Goal Lifestyle education regardin g diet completed Goal Mammogram. Due on due Goal HPV. Due on due Goal Drug Abuse Scree yosi Test (DAST-10). Due on due Goal Pneumococcal vac cine. Due on due Goal HPV testing. Due on 024 due Goal Diabetes screening. Due on A due Goal Vitamin D. Due on due Goal Depression scree yosi. Due on due Goal HIV screen due Goal Pap/HPV testing. Due on due Goal CBC. Due on due Goal Obtain Height, W eight, and BMI. Due on due Goal TSH. Due on due Goal CMP. Due on due Goal Generalized Anxi ety Disorder - 7 (MADHURI-7). Due on due Goal Follow up Plan f or abnormal BMI (Less than 18.5, greater than 25). Due on due Goal ECG due Goal Unhealthy drug use screening due Goal Influenza vaccine. Due on due Goal Colonoscopy. Due on due Goal Vitamin B12. Due on due Goal Urinalysis. Due on due Goal Hepatitis C Screening due Goal Lipid panel. Due on due Goal Tobacco Use Scre ening. Due on due Goal Obtain blood Pre ssure. Due on due Goal PAP. Due on due Goal Lifestyle education regardin g diet completed Goal Obtain blood Pre ssure. Due on due Goal HPV. Due on due Goal Depression scree yosi. Due on due Goal Mammogram. Due on due Goal PAP. Due on due Goal Vitamin B12. Due on due Goal Colonoscopy. Due on due Goal Influenza vaccine. Due on due Goal Lipid panel. Due on due Goal Follow up Plan for abnormal BMI (Less than 18.5, greater than 25). Due on due Goal Tobacco Use Scre ening. Due on due Goal CMP. Due on due Goal Pneumococcal vac cine. Due on due Goal TSH. Due on due Goal Diabetes screening. Due on due Goal HPV testing. Due on due Goal CBC. Due on due Goal Drug Abuse Scree yosi Test (DAST-10). Due on due Goal HIV screen due Goal Obtain Height, W eight, and BMI. Due on due Goal Unhealthy drug use screening due Goal Vitamin D. Due on due Goal Pap/HPV testing. Due on due Goal Urinalysis. Due on due Goal ECG due Goal Generalized Anxi ety Disorder - 7 (MADHURI-7). Due on due Goal Hepatitis C Screening due Goal Lifestyle education regardin g diet completed Goal Pneumococcal vac cine. Due on due Goal Vitamin B12. Due on due Goal Lipid panel. Due on due Goal Pap/HPV testing. Due on due Goal Depression scree yosi. Due on due Goal CBC. Due on due Goal Diabetes screening. Due on N due Goal Influenza vaccine. Due on due Goal Tobacco Use Cess ation Counseling. Due on due Goal Mammogram. Due on due Goal HPV. Due on due Goal Obtain blood Pre ssure. Due on due Goal Obtain Height, W eight, and BMI. Due on due Goal Unhealthy drug use screening due Goal Tobacco Use Scre ening. Due on due Goal Urinalysis. Due on 24 due Goal Drug Abuse Scree yosi Test (DAST-10). Due on due Goal CMP. Due on due Goal Generalized Anxi ety Disorder - 7 (MADHURI-7). Due on due Goal Colonoscopy. Due on due Goal Follow up Plan f or abnormal BMI (Less than 18.5, greater than 25). Due on due Goal HIV screen due Goal Hepatitis C Screening due Goal ECG due Goal TSH. Due on due Goal HPV testing. Due on 024 due Goal PAP. Due on due Goal Vitamin D. Due on due Goal Lifestyle education regardin g diet completed Goal Influenza vaccine. Due on due Goal Obtain Height, W eight, and BMI. Due on due Goal Lipid panel. Due on 028 due Goal Pap/HPV testing. Due on due Goal Urinalysis. Due on due Goal Generalized Anxi ety Disorder - 7 (MADHURI-7). Due on due Goal Hepatitis C Screening due Goal Tobacco Use Scre ening. Due on due Goal TSH. Due on due Goal HPV. Due on due Goal CMP. Due on due Goal HPV testing. Due on due Goal HIV screen due Goal Depression scree yosi. Due on due Goal Diabetes screening. Due on due Goal Pneumococcal vac cine. Due on due Goal Unhealthy drug use screening due Goal PAP. Due on due Goal Mammogram. Due on due Goal Vitamin D. Due on due Goal Tobacco Use Cess ation Counseling. Due on due Goal CBC. Due on due Goal Drug Abuse Scree yosi Test (DAST-10). Due on due Goal ECG due Goal Obtain blood Pre ssure. Due on due Goal Colonoscopy. Due on due Goal Vitamin B12. Due on due Goal Follow up Plan f or abnormal BMI (Less than 18.5, greater than 25). Due on due Goal Lifestyle education regardin g diet completed Goal PAP. Due on due Goal TSH. Due on due Goal HIV screen due Goal Unhealthy drug u se screening. Due on due Goal ECG due Goal Generalized Anxi ety Disorder - 7 (MADHURI-7). Due on due Goal Follow up Plan f or abnormal BMI (Less than 18.5, greater than 25). Due on due Goal Urinalysis. Due on due Goal Vitamin D. Due on due Goal Influenza vaccine. Due on due Goal Tobacco Use Cess ation Counseling. Due on due Goal Drug Abuse Scree yosi Test (DAST-10). Due on due Goal HPV. Due on due Goal Lipid panel. Due on due Goal Mammogram. Due on due Goal Colonoscopy. Due on 032 due Goal Obtain blood Pre ssure. Due on due Goal CMP. Due on due Goal Pap/HPV testing. Due on due Goal Depression scree yosi. Due on due Goal CBC. Due on due Goal Pneumococcal vac cine. Due on due Goal HPV testing. Due on due Goal Tobacco Use Scre ening. Due on due Goal Diabetes screening. Due on due Goal Hepatitis C Screening due Goal Obtain Height, W eight, and BMI. Due on due Goal Vitamin B12. Due on due Goal Lifestyle education regardin g diet completed Goal Tobacco Use Scre ening. Due on due Goal CBC. Due on due Goal Generalized Anxi ety Disorder - 7 (MADHURI-7). Due on due Goal Obtain blood Pre ssure. Due on due Goal Obtain Height, W eight, and BMI. Due on due Goal Drug Abuse Scree yosi Test (DAST-10). Due on due Goal HPV testing. Due on due Goal PAP. Due on due Goal Hepatitis C Screening due Goal Vitamin B12. Due on due Goal CMP. Due on due Goal Lipid panel. Due on 028 due Goal FOBT. Due on due Goal HIV screen due Goal Urinalysis. Due on due Goal Tobacco Use Cess ation Counseling. Due on due Goal Diabetes screening. Due on due Goal ECG. Due on due Goal TSH. Due on due Goal Mammogram. Due on 3 due Goal Vitamin D. Due on 4 due Goal Pneumococcal vac cine. Due on due Goal Colonoscopy. Due on due Goal HPV. Due on due Goal Depression scree yosi. Due on due Goal Influenza vaccine. Due on due Goal Pap/HPV testing. Due on due Goal Follow up Plan for abnormal BMI (Less than 18.5, greater than 25). Due on due Goal Unhealthy drug use screening due Goal Drug Abuse Scree yosi Test (DAST-10). Due on due Goal Generalized Anxi ety Disorder - 7 (MADHURI-7). Due on due Goal Colonoscopy. Due on due Goal ECG. Due on due Goal HPV. Due on due Goal Pneumococcal vac cine. Due on due Goal HPV testing. Due on due Goal TSH. Due on due Goal Tobacco Use Scre ening. Due on due Goal Influenza vaccine. Due on due Goal Vitamin B12. Due on due Goal Pap/HPV testing. Due on due Goal FOBT. Due on due Goal Urinalysis. Due on due Goal Mammogram. Due on 3 due Goal HIV screen due Goal Unhealthy drug use screening due Goal Diabetes screening. Due on due Goal Depression scree yosi. Due on due Goal Lipid panel. Due on due Goal Vitamin D. Due on due Goal Obtain Height, W eight, and BMI. Due on due Goal CBC. Due on due Goal Obtain blood Pre ssure. Due on due Goal Hepatitis C Screening due Goal CMP. Due on due Goal Tobacco Use Cess ation Counseling. Due on due Goal PAP. Due on due Goal Follow up Plan f or abnormal BMI (Less than 18.5, greater than 25). Due on due Goal Mammogram. Due on due Goal HIV screen due Goal TSH. Due on due Goal Generalized Anxi ety Disorder - 7 (MADHURI-7). Due on due Goal Pap/HPV testing. Due on due Goal Hepatitis C Screening due Goal HPV testing. Due on due Goal Obtain Height, W eight, and BMI. Due on due Goal Drug Abuse Scree yosi Test (DAST-10). Due on due Goal Obtain blood Pre ssure. Due on due Goal Vitamin B12. Due on due Goal Pneumococcal vac cine. Due on due Goal ECG. Due on due Goal Colonoscopy. Due on due Goal Influenza vaccine. Due on due Goal Tobacco Use Scre ening. Due on due Goal PAP. Due on due Goal CMP. Due on due Goal Tobacco Use Cess ation Counseling. Due on due Goal Depression scree yosi. Due on due Goal FOBT. Due on due Goal Follow up Plan f or abnormal BMI (Less than 18.5, greater than 25). Due on due Goal HPV. Due on due Goal Diabetes screening. Due on due Goal Urinalysis. Due on due Goal Unhealthy drug use screening due Goal Lipid panel. Due on due Goal Vitamin D. Due on due Goal CBC. Due on due Goal Drug Abuse Scree yosi Test (DAST-10). Due on due Goal CMP. Due on due Goal Unhealthy drug use screening due Goal CBC. Due on due Goal Generalized Anxi ety Disorder - 7 (MADHURI-7). Due on due Goal Tobacco Use Cess ation Counseling. Due on due Goal Obtain blood Pre ssure. Due on due Goal Urinalysis. Due on due Goal HIV screen due Goal ECG. Due on due Goal HPV testing. Due on due Goal Pap/HPV testing. Due on due Goal FOBT. Due on due Goal Vitamin D. Due on due Goal Follow up Plan f or abnormal BMI (Less than 18.5, greater than 25). Due on due Goal HPV. Due on due Goal Diabetes screening. Due on due Goal Pneumococcal vac cine. Due on due Goal Tobacco Use Scre ening. Due on due Goal TSH. Due on due Goal Colonoscopy. Due on due Goal Obtain Height, W eight, and BMI. Due on due Goal PAP. Due on due Goal Depression scree yosi. Due on due Goal Hepatitis C Screening due Goal Mammogram. Due on due Goal Lipid panel. Due on 028 due Goal Vitamin B12. Due on 024 due Goal Influenza vaccine. Due on due Goal Colonoscopy. Due on 023 due Goal HIV screen due Goal Depression scree yosi. Due on due Goal Obtain blood Pre ssure. Due on due Goal CMP. Due on due Goal ECG. Due on due Goal CBC. Due on due Goal Tobacco Use Scre ening. Due on due Goal Generalized Anxi ety Disorder - 7 (MADHURI-7). Due on due Goal Urinalysis. Due on due Goal Tobacco Use Cess ation Counseling. Due on due Goal Pap/HPV testing. Due on due Goal FOBT. Due on due Goal PAP. Due on due Goal Hepatitis C Screening due Goal HPV testing. Due on due Goal Diabetes screening. Due on due Goal TSH. Due on due Goal Drug Abuse Scree yosi Test (DAST-10). Due on due Goal Obtain Height, W eight, and BMI. Due on due Goal Pneumococcal vac cine. Due on due Goal Mammogram. Due on due Goal Lipid panel. Due on due Goal Follow up Plan f or abnormal BMI (Less than 18.5, greater than 25). Due on due Goal HPV. Due on due Goal Vitamin B12. Due on due Goal Influenza vaccine. Due on due Goal Vitamin D. Due on due Goal Unhealthy drug use screening due Goal Lifestyle education regardin g diet completed Goal ECG. Due on due Goal Diabetes screening. Due on due Goal Obtain blood Pre ssure. Due on due Goal Urinalysis. Due on due Goal Obtain blood Pre ssure. Due on due Goal Urinalysis. Due on due Goal ECG. Due on due Goal HPV. Due on due Goal Mammogram. Due on 3 due Goal Lipid panel. Due on 028 due Goal Influenza vaccine. Due on due Goal Vitamin B12. Due on 024 due Goal Depression scree yosi. Due on due Goal Colonoscopy. Due on 023 due Goal Drug Abuse Scree yosi Test (DAST-10). Due on due Goal Obtain Height, W eight, and BMI. Due on due Goal HIV screen due Goal Generalized Anxi ety Disorder - 7 (MADHURI-7). Due on due Goal TSH. Due on due Goal Follow up Plan f or abnormal BMI (Less than 18.5, greater than 25). Due on due Goal Tobacco Use Cess ation Counseling. Due on due Goal FOBT. Due on due Goal Pap/HPV testing. Due on due Goal Hepatitis C Screening due Goal CBC. Due on due Goal Unhealthy drug use screening due Goal CMP. Due on due Goal Tobacco Use Scre ening. Due on due Goal PAP. Due on due Goal Vitamin D. Due on due Goal HPV testing. Due on due Goal HPV testing. Due on due Goal Generalized Anxi ety Disorder - 7 (MADHURI-7). Due on due Goal Colonoscopy. Due on due Goal CMP. Due on due Goal Vitamin D. Due on due Goal PAP. Due on due Goal CBC. Due on due Goal Pap/HPV testing. Due on due Goal Tobacco Use Scre ening. Due on due Goal HPV. Due on due Goal Drug Abuse Scree yosi Test (DAST-10). Due on due Goal Influenza vaccine. Due on due Goal Vitamin B12. Due on due Goal Obtain Height, W eight, and BMI. Due on due Goal Hepatitis C Screening due Goal Diabetes screening. Due on due Goal Depression scree yosi. Due on due Goal Follow up Plan f or abnormal BMI (Less than 18.5, greater than 25). Due on due Goal Unhealthy drug use screening due Goal TSH. Due on due Goal Lipid panel. Due on 028 due Goal HIV screen due Goal Tobacco Use Cess ation Counseling. Due on due Goal FOBT. Due on due Goal Mammogram. Due on 3 due Goal Tobacco cessation counseling completed Goal Lifestyle education regardin g diet completed Referral Ordered: [facility] -Podiatry (related to Type 2 diabetes mellitus without complications) ordered Referral Referred To: [facility] Ordered: Referrals: Podiatry. [facility]. Location: [place]. Consult Appointment date/timeframe: 1 Week ordered Referral Ordered: X-RAY EXAM OF HEEL Right foot/heel Appointment date/timeframe: 1 Day ordered Referral Referred To: [facility] Ordered: Referrals: Surgery. [facility]. Location: [place], [place]. Evaluate and treat. Surgery Appointment date/timeframe: 04/15/2024 ordered Referral Ordered: US EXAM, ABDOM, COMPLETE Right abdomen Appointment date/timeframe: 12/29/2023 ordered Referral Ordered: referred to as scheduled for labs 1 Month Appointment date/timeframe: 1 Month ordered Referral Ordered: Referrals: Cardiology. Consult Appointment date/timeframe: 05/08/2023 ordered Referral Referred To: Syeda Berman MD Ordered: Referrals: Gastroenterology. Syeda Berman MD. Location: [place], [place]. Evaluate and treat Appointment date/timeframe: 02/17/2023 ordered Appointment Chris Argueta - Fasting Lab s BOOKED Future Order: Lab Order Comp. Me tabolic Panel (14) ([id number]), Collected on: Ordered Future Order: Lab Order Hemoglob in A1c ([id number]), Collected on: Ordered Future Order: Lab Order Lipid Pa roxy ([id number]), Collected on: Ordered Future Order: Lab Order TSH Rfx on Abnormal to Free T4 ([id number]), Collected on: Ordered Future Order: Lab Order Uric Aci d, Serum ([id number]), Collected on: Ordered Future Order: Lab Order Vitamin D, 25-Hydroxy ([id number]), Collected on: Ordered Future Order: Lab Order Microalb umin, Random urine ([id number]), Collected on: Ordered Future Order: Lab Order Anemia P rofile B ([id number]), Collected on: Ordered Future Order: Lab Order Anemia P rofile B ([id number]), Scheduled for: Ordered Future Order: Lab Order Comp. Me tabolic Panel (14) ([id number]), Scheduled for: Ordered Future Order: Lab Order Lipid Pa roxy ([id number]), Scheduled for: Ordered Future Order: Lab Order Hemoglob in A1c ([id number]), Scheduled for: Ordered Future Order: Lab Order TSH Rfx on Abnormal to Free T4 ([id number]), Scheduled for: Ordered Future Order: Lab Order Vitamin D, 25-Hydroxy ([id number]), Scheduled for: Ordered History Of Present Illness Encounter Date Complaint History Of Prese nt Illness foot foot pain right foot pain (on the right heel) x 3 weeks.Sharp shooting painno injuryworse when standingworse when she gets out of bednot taking anything for ithas tried ibuprofen, but did not helpwill try Prednisone dose pack if xray is neg for bone spur. Possible plantar fasciitis.instructed on ice application and proper fitting shoes. DM foot exam today- needs DM shoes- will send to [facility] will have fasting labs today rash left arm x 2 weeks- possible poison karmawill send triamcinalonewash skin and bed linens in hot water and clothing worn that daywill f/u in 2 weeks Dysuria Onset: 1 week ag o. Location is lower back. The client describes it as burning. It occurs constantly. The problem is worse. Symptom is aggravated by caffeine. Relieving factors include increased fluids. Associated symptoms include dysuria. Pertinent negatives include back pain, flank pain, urinary frequency, hematuria, nausea and pelvic pressure. Additional information: no history of interstitial cystitis, no history of irritable bowel, no history of pyelonephritis, no history of stones, history of UTIs, UA completed in office today. Worse after drinking pop again.. f/u labs Chris is a 49 y o female here for f/u on recent lab results.She is due for DM foot exam today, and micro albumin.DM:A1c 6.0down 18.6 lbsHTN:122/83 todayHLD:TOTAL 99, HLD 41, LDL 41, Trigs 87TSH, Vit D goodNASH:Alk Phos 124, ALT 68, AST 57- improvedencouraged to avoid ETOH, TylenolLow fat dietAsthma:Neutrophils 8.3, WBC 12.4+ coughFeeling better today thoughRecent ER visit last week for Hernia, Nausea, vomiting. Fasting Labs Pt is here today to have fasting labs collected. 1x attempt in right ac with butterfly needle. Successfully collected 3 tubes, pt tolerated well, gauze and coban applied, pt instructed to remove in 5-10 minutes, pt voiced understanding. Pt is scheduled to rtc in 2 weeks to follow up on lab results. f/u medication Chris is here t prashanth for f/u on her medication:T2DM:She was started on Jardiance 10 mg 04/09/24Start ozempicRTC 1 month f/u mediationFoot exam at that time.ZAMUDIO: All liver enzymes elevated at last visitStart Vit E per ebp guideinesstart ozempicrepeat fasting labs June 21Hernia- she is to lose weight prior to restaurant busser visit in April, possible blockage, better nowtalked about using stool softener to helpmiralax daily for regularityincrease fiber in diet and water consumptionHTN-still remains high todayjust took medication this am at [id number]/75 on 2nd reading f/u labs and bp Chris is here t prashanth for f/u on her labs and BPLabs as follows:LDL, Trigs wnlElevated liver enzymes: 139 alk phosphate, 138 ALT, 78 AST. She does report drinking more ETOH lately. She was advised this could be affecting her liver. She voiced understanding.A1c 6.5- DMshe is adjusting her diet to eliminate sugar from her diet.HTN: [id number] todayMag went to her consult w/ Dr. Franco. States she will f/u with him in 1 month- she is to lose weightShe was started on Jardiance last week, however she was unable to get the medication r/t it will require a PA.She is to call back today to see if she was able to receive from the pharmacy today. Possible Hernia Umbilical Hernia :Chris is here today out of concern for a possible hernia.States she has had this pain for 3-4 weeks. Hernia is at the umbilicus and approximately the size of a baseball. It is firm, but reducible, and she states is painful most of the time. She was told she would need to lose weight prior to a surgery, but with increased pain and firmness she will need re-evaluation.18 lb weight gain since September ( our records show she was 219 in Dec- however, I feel this was documented incorrectly, as she has not disclosed a 100 lb weight loss/gain since Dec. In September she was closer to today's weight at 301 lbs- and at that visit had reported a 15 lb weight loss. (which would have made her 291 lbs instead of 219). We called her and confirmed- she was 291 lbs at that time.DM:She is is newly diabetic since August 2023Shderrell was able to lower her a1c from 6.7 to 6.1 in November, but is rising again as today is 6.5.I am starting her on metformin 500 ER daily and Jardiance 10 mg daily for better management and for her comorbitities..Fasting labs were collected today and she will f/u in office in 2 weeks. HTN: high today 165/96 on a second reading. She is in pain today, and states she compliant with her medications. FOLLOW UP ON LABS Chris is here today to follow up on recent lab results.Overall labs okTotal cholesterol 136, HDL 59, LDL 58, and trigs 106TSH wnl-stableGlucose 135, A1c 6.1CBC- RBC 3.74MCV elevated- hx of anemiawill restart iron supplementation QODOTCAlk phos 123, ALT 157, and AST 115Angezulema reports nausea and RUQ pain that radiates into her backDenies fever, vomitingWill do RUQ US and refer to gen sx for possible cholecystectomy if needed.does not smokeRecommend to have repeat colonoscopy before Nov 2024 r/t new hx of brother w/ colon cancer at age 45Last Colonoscopy was completed 11/07/21 and was negativeshe goes to [facility] [place]: has not been using advair as instructeddoes use albuterol 1-2 times weeklywill start montelukast and encouraged adviar complianceshe voiced understandingdenies cough or wheeze today fasting labs Chris is here t prashanth to have fasting labs collected. Successfully collected 3 tubes, pt tolerated well. Pt is scheduled to rtc in 1 week to follow up on lab results. f/u labs Chris is here t prashanth for f/u on recent labs. She was sick at time of collection.WBC 13.3ALT 39- improvedCreat 1.20 and GFR 56- likely from vomiting/diarrhea, also taking more ibuprofenwill repeat cbc, cmp today K+ elevated at 5.4A1c slightly higher 6.7LDL 47, trigs 80, total cholesterol 120TSHK, B12, Vit D Checo states she is feeling much better today. Depression Screening Depression Screening completed during today's visit. Patient scored 0 on the PHQ2, PHQ9 not needed at this time. Provider notified of patients score. f/u h.pylori 08.03.23 dx of h. pylori.Today Chris reports all symptoms have resolved.She has completed her antibiotics for this.She states she does feel so much better.She was encouraged to keep her GI apt on 09.30.23 for possible endoscopy/colonoscopy.She voiced understanding. Fasting routine 3 month labs collected today. f/u labs/pap Chris is here t prashanth for f/u on recent pap smear and std screening.She was + fo BV and medication was sent on 08.12.23.She did not get the medication r/t her phone # had not been updated in our system and we were unable to reach her.She was instructed to obtain the medication today. She verbalized understanding.Otherwise pap was neg, std screening neg. epigastric pain Chris is here t prashanth for her well woman exam, but also reports that she has had epigastric pain over 2 weeks. She went to [facility] on 07.27.23 and received fluids and medication. CT of abdomen noted Enlarged fatty liver (hx of ZAMUDIO), Midline abdominal wall hernia containing non-obstructed small bowel. In past has been seen by [facility], as well as [facility] whom did her colonoscopy in 2021.She states today she continues to have nausea and epigastric pain that seems to be worse. Eating sometimes eases the pain, however causes more vomiting. She did test + for H.Pylori in office today and will be started on anbx. Currently taking omeprazole 40 mg daily- will increase to bid for 14 days, then see if we can reduce to daily, and possibly wean. She has changed her diet to eliminate acidic, spicy or greasy foods. women's health exam SHe is also here today for routine pap-smear and std screening.No vaginal complaintsDenies multiple partners.[id number]- daughter when older as result of OD. Follow up on labs Chris is here this morning to follow up on recent lab results.AST slightly elevated at 70- much improved. Hx of A1c slight elevation 6.1- PreDM- not on medication currentlyDiet modification recommended - handouts given for pt education in regards to OrwnuhignioF70 improved 468CBC Hari voices no concerns todayMammo-03.26.2023- benignPap-due- will scheduleColonoscopy-11/07/21Tomorrow will go for pre-admission for her knee sx- sx is on fridayBP is better- home readings here today06/06/23 157/95 am 06/07/23 146/84 AM, 128/86 pm06/09/23 127/78 am06/10/23 13/80 amToday 121/78 in office.Continues to be smoke free f/u BP Chris is a 48 y o female (white) here today for f/u on BP.We have been working to get it down, latest medication adjustment was increasing amlodipine to 10 mg 1month ago.Today it is still high today is 132/80Mag has a list of her home BP pressures: for past 2 weeks, AM reading started 130's-140 systolic and diastolic 70's to upper 80's.She was evaluated at Cardiology on 05.08.23 for surgical clearance for rt knee on June 15- at [facility].She had an Echo Cardiogram on 05/21/23 Nml biventricular systolic function. No significant vavular stenosis or regurgitation.Stopped smoking last derrell will have repeat fasting labs today (cbc, cmp, b12, and a1c)Last Mammo 03/26/23- on chart- neg repeat 1 yearColonoscopy 11/07/21- on chart- neg for malignancyPap- due- she will schedule soon- last 2017 FOLLOW UP ON BP Chris is here t prashanth to f/u on her BPWe have been working to get it down, latest medication adjustment was increasing amlodipine to 10 mg 2 weeks ago.Today it is still high today on 1st read, but repeat is 128/77Shderrell has a list of her home BP pressures: for past month, AM reading started 150's-160 systolic and diastolic 70's to upper 90's.This past week #'s are better upper 130's -140's systolic and upper 70's -90'sShe was evaluated at Cardiology on 05.08.23 for surgical clearance.She will need an Echo Cardiogram to do so. 05/21/23 is the echo dateStopped smoking last will f/u here in 2 weeks repeat labs 2 weeks (cbc, cmp, b12, and a1c)Consider medication change if still highLast Mammo 03/26/23- on chart- neg repeat 1 yearColonoscopy 11/07/21- on chart- neg for malignancyPap- due- she will schedule soon- last 2017 congestion/fever Chris is a 47 yo white female here today as an acute visit for fever and congestion. ON 04/27 she was seen in the ER for sinus congestion, that had started 3 days earlier.She f/u here in the office on 05/01/23 and reported feeling better.Today she reports it is worse, has sinus pressure, and subjective fever.She has had flonase- which helped some.She was neg for flu, strep and covid while in the ER- declines testing todayMild wheezing xander expiratory Follow up on BP Chris is here t his morning to follow up on BP. Pt states that every morning she checks her BP and they have been 170 and higher over 90-100 prior to taking her morning medication, and lowest of 142/88.. Today, pt's bp is 151/91 in right arm while sitting, repeat 152/91 several minutes later. She does report being sick this past week with fever, chills, congestion- went to [facility], has been taking dayquil and benadryl OTC. She is better today. Denies HAMLIN, CP, Soa, Dizziness.2 weeks ago I inceased propranolol to 20 mg bid.Today I will increase amlodipine to 10 mg daily.She is also on Lisinopril 40 mg daily.She is to have an appt w/ cardiology soon- for surgical clearance at [facility] has been made, so far she does not have an appt.Pt was given phone # to cardiology today in office to call and see if they will schedule her.They may address her HTN there if needed.She is to RTC here in 2 weeks for f/u on BP medication changes.If not improving, will consider changing medication and Renal US/Renal artery Duplex.She continues to be smoke free- cessation of cigarettes in Dec.She states she does not consume much sodium in her diet. Currently unable to exercise, weight loss is recommended. surgical clearance exam Chris moss s a 47 yo white female here today for surgical clearance for upcoming sx - R UKA to be completed by [facility].She has hx of pre DM, TRAM, THyroid disease, COPD, ZAMUDIO, HTNEKG today- Normal Sinus HR 68Moderate intraventricular conduction delayBorderline ECGWill need Cardiology to clear for surgery.HTN:BP is 151/88 on 1st reading today, 143/84 on 2nd readingIt has improved since starting her care here in DecemberShe is currently taking her medication: Lisinopril, amlodipine, and propranololCOPD stablePre DM- a1c 5.8Recently has stopped smoking in Dec. B12 INJECTION CHRIS IS HERE T HIS MORNING FOR B12 INJECTION #5 OF 6. ADMINISTERED INTO RIGHT DELTOID. PT TOLERATED WELL, BAND AID APPLIED. PT IS SCHEDULED TO RTC IN 1 WEEK FOR B12 # 6 OF 6. B12 INJECTION CHRIS IS HERE T HIS MORNING TO RECEIVE B12 INJECTION #4 OF 6. ADMINISTERED INTO RT DELTOID, BANDAID APPLIED, PT TOLERATED WELL. PT TO RTC IN 1 WEEK FOR INJECTION #5 OF 6. B12 INJECTION CHRIS IS HERE T PRASHANTH TO RECEIVE B12 INJECTION #3 OF 6. ADMINISTERED INTO LEFT DELTOID, PT TOLERATED WELL, BANDAID APPLIED. PT SCHEDULED TO RTC IN 1 WEEK FOR INJECTION #4 OF 6. B12 INJECTION CHRIS IS HERE T HIS MORNING FOR B12 INJECTION #2 OF 6. ADMINISTERED INTO RT DELTOID, PT TOLERATED WELL, BANDAID APPLIED. PT TO RTC IN 1 WEEK FOR INJECTION #3 OF 6. f/u labs Chris is here t prashanth for f/u on lab results.She reports she quit smoking on the and has been smoke free since.She was taking ibuprofen daily as well, but has stopped since her last visit here.She continues to have mild neck and back pain after falling on the at home on her frosty deck. She states she fell on her left knee, but thinks it is ok.She was told she needed baritric sx, but wanted to have a 2nd opinionLast seen by Dr. Metzger- [facility]- pt reported hx of ulcerative colitis and LFT in 2020. She had US of ab and US elastography, both confirmed infiltration fatty liver. At that time she did have all risk for ZAMUDIO, pt states she was diagnosed. Today - ALT 111, AST 64She states umbilical Hernia is painful, feels like it is larger in past few weeks. Visually protruding size of a lower [place].has eliminated 1 soda per day and adding watereats low fat mealsTotal cholesterol is 119, LDL 42, Trigs 53, and HDL 63Denies RUQ painb12 low 387will start 6 week series injections, then switch to monthlyshe reports brain fog and paresthesia of xander hands and feet at timeshx of metabolic syndrome- A1c 5.8 (preDM)Diet modification to eliminate processed sugars and dcrease simple carbs discussedImportance of daily exerciseTSH wnl, cbc okVit D 97HTN:uncontrolled- has dizziness sometimesToady is 163/96 and 164/96She states she is compliant w/ medsproranolol 10 and lisinopril 10 mgToday I am increasing lisinopril to 40 mg daily and adding 5 mg amlodipineRTC 4 weeks for BP check and 4th b12 injection New to establish care Chris Kim son is a 47 yo white female here to establish care and for evaluation of a hernia.She is establishing care here to be closer to home.Previous PCP [facility] does smoke 1/4 of a ppd- started at age 15has quit once for 2 months w/ patchesShderrell has been evaluated by a bariatric surgeon- Dr. Mccollum- Joyderrell would like a 2nd opinion for her herniashe states she was told she would have to have gastric bypass prior to the hernia repair, but does not wish to have this.Vaccines currentPNa, Tdap last yearCovid- due for new boosterWill have flu vaccine todayNeeds refills[facility]- on adviar and albuterolsmoking cessation encouragedusing adviar only once dailyalbuterol 3-4 x weeks HTN- uncontorolledDiscouraged nsaids, smokingHypothyroidism- on Levothyroxinestable for past year per pt reportVit D- weekly vit D3 50,000importance of diet and exercise discussed in depth todayGERD- omperazole dailyAllergies- certirizine created in error- see other enco unter for today- NO charge on this OV Instructions Date Instruction Additional Infor mation Giving encouragement to exercise Related to Body mass index [BMI] 45.0-49.9, adult Lifestyle education regarding di et Related to Body mass index [BMI] 45.0-49.9, adult Patient instructed o f the importance of taking medications as prescribed, following a low salt diet as well as getting physical activity as tolerated. Patient advised to keep BP log daily checking each morning and before bed. Patient to call the clinic if systolic blood pressure is greater than 150 and/or diastolic blood pressure is staying greater than 90.Took medication later than usual today Related to Essential (primary) hypertension Patient educated on the importance of maintaining glycemic control. Counseled on diet, exercise and other lifestyle factors that can impact glucose control. Monitor blood glucose and keep a log as instructed by checking fasting glucose in the AM and non fasting before bedtime with any additional checks as instructed. Patient instructed to bring glucose log to all scheduled appointments. Instructed on the importance of taking all medications as prescribed. Patient aware of the importance of diabetic eye exams, dental check ups, foot exams and diabetic foot care. Patient verbalized understanding.+ Glucose in UA todayrepeat labs in 1 month- O5oilaukyims w/ medications Related to Type 2 diabetes mellitus without complications Avoid chocolate, caf feine, carbonation, or citrus. Take antibiotics until complete. Take all medications as prescribed. Drink plenty of clear fluids. Counseled on appropriate hygiene to reduce risk of future UTI's. Verbalized an understanding of all. Related to Dysuria Giving encouragement to exercise Related to Body mass index [BMI] 45.0-49.9, adult Lifestyle education regarding di et Related to Body mass index [BMI] 45.0-49.9, adult 15 minutes of sun ex posure daily to naturally raise vitamin D levels Related to Vitamin D deficiency B-12 injection given in office today. Eat foods rich in B-12. Additional oral B12 replacement if indicated. Related to Vitamin B12 deficiency Patient educated on the importance of maintaining glycemic control. Counseled on diet, exercise and other lifestyle factors that can impact glucose control. Monitor blood glucose and keep a log as instructed by checking fasting glucose in the AM and non fasting before bedtime with any additional checks as instructed. Patient instructed to bring glucose log to all scheduled appointments. Instructed on the importance of taking all medications as prescribed. Patient aware of the importance of diabetic eye exams, dental check ups, foot exams and diabetic foot care. Patient verbalized understanding. Related to Type 2 diabetes mellitus without complications Low fat, low cholest nereyda diet. Avoid fatty, fried, and greasy foods. Physical activity as tolerated. Encouraged avoidance of tobacco products. Related to ZAMUDIO Dietary Instructions for a healthy weight: BMI should be between the range of 18.5-24.9 for an adult; and Caloric intake should be around 6577-5867 for a female, and 8036-5947 for an adult male. Fiber intake should be about 14 grams for 1000 calories per day. That is about 20-30 grams daily. Good sources of fiber are oatmeal, fortified grains, and green leafy vegetables, apples. You can also use Carbohydrate counting to maintain a healthy weight. One serving is equal to 15 grams (1 piece of bread, small fruit, or 1 cup of milk). Men should have 45-75, Women about 30-65 per meal, and snacks are recommend to be 13-30 grams each. [employer] is a good source for meal planning and dietary education. You may also refer to the [place] [employer] website for further low sodium, health heart diet information. Mediterainian diet would be a suitable diet for your current health conditions. Related to Obesity, unspecified Take any medications as prescribed, Follow a nutrient dense diet. Notify the provider of any signs of active bleeding (easy bruising, hematemesis, hematuria, melena, bright red blood per rectum), ornew symptoms, such as: increased fatigue, dyspnea, chest pain, weakness, dizziness, or palpitations. Verbalized an understanding of all. Do not take Iron with other medications. Take on an empty stomach if possible, and two hours prior to any other foods or medications. Do not drink milk or take tums within two hours of your iron. Increase water intake. Take any medications prescribed as directed. May use OTC medications prn for symptom relief of constipation. Iron can make you stool appear black, like blood. Follow a nutrient dense diet to include high fiber. Notify the provider of any signs of active bleeding (easy bruising, hematemesis, hematuria, melena, bright red blood per rectum), or new symptoms, such as: increased fatigue, dyspnea, chest pain, weakness, dizziness, or palpitations. Verbalized an understanding of all. Related to Iron deficiency anemia, unspecified Patient currently do ing well. BP in goal range. No medication changes. Patient instructed to follow a low salt diet, continuing taking blood pressure medications as prescribed. Keep routine follow up with clinic. Related to Essential (primary) hypertension Patient instructed t o continue current medication regimen. Patient instructed to avoid tobacco smoke, vaping and other environmental smoke exposure. Exertional activity as tolerated to maintain lung function. Discussed signs and symptoms with COPD exacerbation, patient instructed to contact the clinic if he or she shows any signs or symptoms of COPD exacerbation. Related to COPD Giving encouragement to exercise Related to Body mass index [BMI] 45.0-49.9, adult Lifestyle education regarding di et Related to Body mass index [BMI] 45.0-49.9, adult Patient educated on the importance of maintaining glycemic control. Counseled on diet, exercise and other lifestyle factors that can impact glucose control. Monitor blood glucose and keep a log as instructed by checking fasting glucose in the AM and non fasting before bedtime with any additional checks as instructed. Patient instructed to bring glucose log to all scheduled appointments. Instructed on the importance of taking all medications as prescribed. Patient aware of the importance of diabetic eye exams, dental check ups, foot exams and diabetic foot care. Patient verbalized understanding.Start ozempic injections 0.25 mg x 4 weeks, then increase t o0.5 mg x 4 weeksRTC June 21 for fasting labsf/u medications and labs in 1 month Related to Type 2 diabetes mellitus without complications Dietary Instructions for a healthy weight: BMI should be between the range of 18.5-24.9 for an adult; and Caloric intake should be around 7923-4152 for a female, and 2282-0525 for an adult male. Fiber intake should be about 14 grams for 1000 calories per day. That is about 20-30 grams daily. Good sources of fiber are oatmeal, fortified grains, and green leafy vegetables, apples. You can also use Carbohydrate counting to maintain a healthy weight. One serving is equal to 15 grams (1 piece of bread, small fruit, or 1 cup of milk). Men should have 45-75, Women about 30-65 per meal, and snacks are recommend to be 13-30 grams each. [employer]gov is a good source for meal planning and dietary education. You may also refer to the [place] [employer] website for further low sodium, health heart diet information. Mediterainian diet would be a suitable diet for your current health conditions. Related to Obesity, unspecified Abdominal wall herni as can balloon out and form a sac. That sac can hold a loop of intestine or a piece of fat that should normally be tucked inside of the belly. This can be painful and even dangerous if the tissue in the hernia gets trapped and unable to slide back into the belly. When this happens, the tissue does not get enough blood, so it can become swollen or even . If you have increased pain, vomiting, fever, please call your doctor or surgeon, or go to the ER if pain/vomiting is uncontrolled. Related to Umbilical hernia without obstruction or gangrene Patient instructed t o continue current medication regimen. Patient instructed to avoid tobacco smoke, vaping and other environmental smoke exposure. Exertional activity as tolerated to maintain lung function. Discussed signs and symptoms with COPD exacerbation, patient instructed to contact the clinic if he or she shows any signs or symptoms of COPD exacerbation. Related to COPD Low fat, low cholest nereyda diet. Avoid fatty, fried, and greasy foods. Physical activity as tolerated. Counseled on risks of associated comorbidities, such as heart disease and stroke. Encouraged avoidance of tobacco products.Start taking Vit EWill start Ozempic for better glycemic control and correction of ZAMUDIO Related to ZAMUDIO Patient instructed o f the importance of taking medications as prescribed, following a low salt diet as well as getting physical activity as tolerated. Patient advised to keep BP log daily checking each morning and before bed. Patient to call the clinic if systolic blood pressure is greater than 150 and/or diastolic blood pressure is staying greater than 90. Related to Essential (primary) hypertension Giving encouragement to exercise Related to Obesity, unspecified Lifestyle education regarding di et Related to Obesity, unspecified Patient instructed o f the importance of taking medications as prescribed, following a low salt diet as well as getting physical activity as tolerated. Patient advised to keep BP log daily checking each morning and before bed. Patient to call the clinic if systolic blood pressure is greater than 150 and/or diastolic blood pressure is staying greater than 90. Related to Essential (primary) hypertension 15 minutes of sun ex posure daily to naturally raise vitamin D levels Related to Vitamin D deficiency Dietary Instructions for a healthy weight: BMI should be between the range of 18.5-24.9 for an adult; and Caloric intake should be around 0143-3881 for a female, and 0818-8876 for an adult male. Fiber intake should be about 14 grams for 1000 calories per day. That is about 20-30 grams daily. Good sources of fiber are oatmeal, fortified grains, and green leafy vegetables, apples. You can also use Carbohydrate counting to maintain a healthy weight. One serving is equal to 15 grams (1 piece of bread, small fruit, or 1 cup of milk). Men should have 45-75, Women about 30-65 per meal, and snacks are recommend to be 13-30 grams each. [employer] is a good source for meal planning and dietary education. You may also refer to the [place] [employer] website for further low sodium, health heart diet information. [place] diet would be a suitable diet for your current health conditions. Physical activity as tolerated. Try to engage in some form of moderate physical activity for 30 minutes most days of the week. May modify activity as needed to reduce discomfort. Try to achieve/maintain a healthy body weight to reduce strain on musculoskeletal system. Verbalizes an understanding. Related to Obesity Patient educated on the importance of maintaining glycemic control. Counseled on diet, exercise and other lifestyle factors that can impact glucose control. Monitor blood glucose and keep a log as instructed by checking fasting glucose in the AM and non fasting before bedtime with any additional checks as instructed. Patient instructed to bring glucose log to all scheduled appointments. Instructed on the importance of taking all medications as prescribed. Patient aware of the importance of diabetic eye exams, dental check ups, foot exams and diabetic foot care. Patient verbalized understanding. Related to Type 2 diabetes mellitus without complications Low fat, low cholest nereyda diet. Avoid fatty, fried, and greasy foods. Physical activity as tolerated. Counseled on risks of associated comorbidities, such as heart disease and stroke. Encouraged avoidance of tobacco products. Related to ZAMUDIO Giving encouragement to exercise Related to Body mass index [BMI] 50.0-59.9, adult Lifestyle education regarding di et Related to Body mass index [BMI] 50.0-59.9, adult Abdominal wall herni as can balloon out and form a sac. That sac can hold a loop of intestine or a piece of fat that should normally be tucked inside of the belly. This can be painful and even dangerous if the tissue in the hernia gets trapped and unable to slide back into the belly. When this happens, the tissue does not get enough blood, so it can become swollen or even . If you have increased pain, vomiting, fever, please call your doctor or surgeon, or go to the ER if pain/vomiting is uncontrolled. Related to Umbilical hernia without obstruction or gangrene Abdominal wall herni as can balloon out and form a sac. That sac can hold a loop of intestine or a piece of fat that should normally be tucked inside of the belly. This can be painful and even dangerous if the tissue in the hernia gets trapped and unable to slide back into the belly. When this happens, the tissue does not get enough blood, so it can become swollen or even . If you have increased pain, vomiting, fever, please call your doctor or surgeon, or go to the ER if pain/vomiting is uncontrolled. Related to Abdominal pain Patient educated on the importance of maintaining glycemic control. Counseled on diet, exercise and other lifestyle factors that can impact glucose control. Monitor blood glucose and keep a log as instructed by checking fasting glucose in the AM and non fasting before bedtime with any additional checks as instructed. Patient instructed to bring glucose log to all scheduled appointments. Instructed on the importance of taking all medications as prescribed. Patient aware of the importance of diabetic eye exams, dental check ups, foot exams and diabetic foot care. Patient verbalized understanding. Related to Type 2 diabetes mellitus without complications Patient instructed o f the importance of taking medications as prescribed, following a low salt diet as well as getting physical activity as tolerated. Patient advised to keep BP log daily checking each morning and before bed. Patient to call the clinic if systolic blood pressure is greater than 150 and/or diastolic blood pressure is staying greater than 90. Related to Essential (primary) hypertension Physical activity as tolerated. Try to engage in some form of moderate physical activity for 30 minutes most days of the week. May modify activity as needed to reduce discomfort. Try to achieve/maintain a healthy body weight to reduce strain on musculoskeletal system. Verbalizes an understanding. Related to Body mass index [BMI] 36.0-36.9, adult Take any medications as prescribed, Follow a nutrient dense diet. Notify the provider of any signs of active bleeding (easy bruising, hematemesis, hematuria, melena, bright red blood per rectum), ornew symptoms, such as: increased fatigue, dyspnea, chest pain, weakness, dizziness, or palpitations. Verbalized an understanding of all. Do not take Iron with other medications. Take on an empty stomach if possible, and two hours prior to any other foods or medications. Do not drink milk or take tums within two hours of your iron. Increase water intake. Take any medications prescribed as directed. May use OTC medications prn for symptom relief of constipation. Iron can make you stool appear black, like blood. Follow a nutrient dense diet to include high fiber. Notify the provider of any signs of active bleeding (easy bruising, hematemesis, hematuria, melena, bright red blood per rectum), or new symptoms, such as: increased fatigue, dyspnea, chest pain, weakness, dizziness, or palpitations. Verbalized an understanding of all. Related to Iron deficiency anemia, unspecified 15 minutes of sun ex posure daily to naturally raise vitamin D levels Related to Vitamin D deficiency Dietary Instructions for a healthy weight: BMI should be between the range of 18.5-24.9 for an adult; and Caloric intake should be around 6607-8044 for a female, and 3482-5587 for an adult male. Fiber intake should be about 14 grams for 1000 calories per day. That is about 20-30 grams daily. Good sources of fiber are oatmeal, fortified grains, and green leafy vegetables, apples. You can also use Carbohydrate counting to maintain a healthy weight. One serving is equal to 15 grams (1 piece of bread, small fruit, or 1 cup of milk). Men should have 45-75, Women about 30-65 per meal, and snacks are recommend to be 13-30 grams each. [employer] is a good source for meal planning and dietary education. You may also refer to the [place] [employer] website for further low sodium, health heart diet information. [place] diet would be a suitable diet for your current health conditions. Related to Obesity You may have some mi ld discomfort, chills, or a sore arm in the next 24 hrs. If needed you may take tylenol per packing instructions Related to Encounter for immunization Take medication gadiel y at the same time, and on an empty stomach. Get adequate rest daily and 30 minutes of moderate exercise most days of the week. Related to Hypothyroidism, unspecified Patient instructed t o continue current medication regimen. Patient instructed to avoid tobacco smoke, vaping and other environmental smoke exposure. Exertional activity as tolerated to maintain lung function. Discussed signs and symptoms with COPD exacerbation, patient instructed to contact the clinic if he or she shows any signs or symptoms of COPD exacerbation.Start taking montelukast daily at bedtime. Monitor for signs or symptoms of depression or aggression. Related to COPD Patient educated on the importance of maintaining glycemic control. Counseled on diet, exercise and other lifestyle factors that can impact glucose control. Instructed on the importance of taking all medications as prescribed. Patient aware of the importance of diabetic eye exams, dental check ups, foot exams and diabetic foot care. Patient verbalized understanding. Related to Prediabetes Clear liquid diet, a dvance as tolerated. Take any medications as instructed. Drink plenty of fluids. If symptoms worsen, or if you have uncontrollable vomiting or fever go to the ER for evaluation. Verbalizes an understandingUS of abdomen will be scheduled for further evaluation of your gallbladder.RTC for results, or f/u with general sx if warranted. Related to RUQ pain Patient instructed o f the importance of taking medications as prescribed, following a low salt diet as well as getting physical activity as tolerated. Patient advised to keep BP log daily checking each morning and before bed. Patient to call the clinic if systolic blood pressure is greater than 150 and/or diastolic blood pressure is staying greater than 90. Related to Essential (primary) hypertension Giving encouragement to exercise Related to Body mass index [BMI] 36.0-36.9, adult Lifestyle education regarding di et Related to Body mass index [BMI] 36.0-36.9, adult Your kidney function was a little low, likely related to your recent illness with vomiting and diarrhea. We will repeat your labs today to make sure it has resolved. Related to Acute renal injury Physical activity as tolerated. Try to engage in some form of moderate physical activity for 30 minutes most days of the week. May modify activity as needed to reduce discomfort. Try to achieve/maintain a healthy body weight to reduce strain on musculoskeletal system. Verbalizes an understanding. Related to Body mass index [BMI] 50.0-59.9, adult Repeat labs today Related to Hyp erkalemia Patient currently do ing well. BP in goal range. No medication changes. Patient instructed to follow a low salt diet, continuing taking blood pressure medications as prescribed. Keep routine follow up with clinic. Related to Essential (primary) hypertension Giving encouragement to exercise Related to Body mass index [BMI] 50.0-59.9, adult Lifestyle education regarding di et Related to Body mass index [BMI] 50.0-59.9, adult Physical activity as tolerated. Try to engage in some form of moderate physical activity for 30 minutes most days of the week. May modify activity as needed to reduce discomfort. Try to achieve/maintain a healthy body weight to reduce strain on musculoskeletal system. Verbalizes an understanding. Dietary Instructions for a healthy weight: BMI should be between the range of 18.5-24.9 for an adult; and Caloric intake should be around 7821-5082 for a female, and 1610-0706 for an adult male. Fiber intake should be about 14 grams for 1000 calories per day. That is about 20-30 grams daily. Good sources of fiber are oatmeal, fortified grains, and green leafy vegetables, apples. You can also use Carbohydrate counting to maintain a healthy weight. One serving is equal to 15 grams (1 piece of bread, small fruit, or 1 cup of milk). Men should have 45-75, Women about 30-65 per meal, and snacks are recommend to be 13-30 grams each. [employer] is a good source for meal planning and dietary education. You may also refer to the [place] [employer] website for further low sodium, health heart diet information. [place] diet would be a suitable diet for your current health conditions. Related to Obesity Patient currently do ing well. BP in goal range. No medication changes. Patient instructed to follow a low salt diet, continuing taking blood pressure medications as prescribed. Keep routine follow up with clinic. Related to Essential (primary) hypertension B-12 injection given in office today. Eat foods rich in B-12. Additional oral B12 replacement if indicated. Related to Vitamin B12 deficiency Take medication gadiel y at the same time, and on an empty stomach. Get adequate rest daily and 30 minutes of moderate exercise most days of the week. Related to Hypothyroidism, unspecified Patient educated on the importance of maintaining glycemic control. Counseled on diet, exercise and other lifestyle factors that can impact glucose control. Instructed on the importance of taking all medications as prescribed. Patient aware of the importance of diabetic eye exams, dental check ups, foot exams and diabetic foot care. Patient verbalized understanding. Related to Prediabetes Giving encouragement to exercise Related to Body mass index [BMI] 45.0-49.9, adult Lifestyle education regarding di et Related to Body mass index [BMI] 45.0-49.9, adult you may consider Kevin ck cohosh 20-60 mg bid for mood swings, vaginitis, and hot flashes(Do not use if you have a history of breast cancer)Take Vitamin E daily to help with dry skin.Papsmear completed today- results will be called to you in a day or two. 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 Discussed lifestyle modifications including but not limited to elevating the head of the bed, limiting fatty, greasy, spicy food intake. Avoid heavy meals and caffeine intake within 2 hours of bedtime. If applicable, reduce/discontinue tobacco use and/or alcohol use, as both can make reflux symptoms worse. Related to Abdominal pain Take all antibiotics until complete. May take with food to ease stomach irritation. If you experience frequent yeast infections, you may consider taking an OTC probiotic like culturell or align while taking antibiotics.Continue to use omeprazole 40 mg two times daily taking 20 min prior to eating and with a full glass of water. Related to H. pylori as the cause of diseases classified elsewhere Giving encouragement to exercise Related to Body mass index [BMI] 45.0-49.9, adult Lifestyle education regarding di et Related to Body mass index [BMI] 45.0-49.9, adult Dietary Instructions for a healthy weight: BMI should be between the range of 18.5-24.9 for an adult; and Caloric intake should be around 9674-0607 for a female, and 4764-4281 for an adult male. Fiber intake should be about 14 grams for 1000 calories per day. That is about 20-30 grams daily. Good sources of fiber are oatmeal, fortified grains, and green leafy vegetables, apples. You can also use Carbohydrate counting to maintain a healthy weight. One serving is equal to 15 grams (1 piece of bread, small fruit, or 1 cup of milk). Men should have 45-75, Women about 30-65 per meal, and snacks are recommend to be 13-30 grams each. [employer] is a good source for meal planning and dietary education. You may also refer to the [place] [employer] website for further low sodium, health heart diet information. [place] diet would be a suitable diet for your current health conditions. Physical activity as tolerated. Try to engage in some form of moderate physical activity for 30 minutes most days of the week. May modify activity as needed to reduce discomfort. Try to achieve/maintain a healthy body weight to reduce strain on musculoskeletal system. Verbalizes an understanding. Related to Body mass index [BMI] 50.0-59.9, adult B-12 injection given in office today. Eat foods rich in B-12. Additional oral B12 replacement if indicated. Related to Vitamin B12 deficiency Patient currently do ing well. BP in goal range. No medication changes. Patient instructed to follow a low salt diet, continuing taking blood pressure medications as prescribed. Keep routine follow up with clinic. Related to Essential (primary) hypertension Patient educated on the importance of maintaining glycemic control. Counseled on diet, exercise and other lifestyle factors that can impact glucose control. . Patient aware of the importance of diabetic eye exams, dental check ups, foot exams and diabetic foot care. Patient verbalized understanding. Related to Prediabetes Giving encouragement to exercise Related to Body mass index [BMI] 50.0-59.9, adult Lifestyle education regarding di et Related to Body mass index [BMI] 50.0-59.9, adult Patient instructed o f the importance of taking medications as prescribed, following a low salt diet as well as getting physical activity as tolerated. Patient advised to keep BP log daily checking each morning and before bed. Patient to call the clinic if systolic blood pressure is greater than 150 and/or diastolic blood pressure is staying greater than 90. Related to Essential (primary) hypertension Dietary Instructions for a healthy weight: BMI should be between the range of 18.5-24.9 for an adult; and Caloric intake should be around 8721-3911 for a female, and 5144-1494 for an adult male. Fiber intake should be about 14 grams for 1000 calories per day. That is about 20-30 grams daily. Good sources of fiber are oatmeal, fortified grains, and green leafy vegetables, apples. You can also use Carbohydrate counting to maintain a healthy weight. One serving is equal to 15 grams (1 piece of bread, small fruit, or 1 cup of milk). Men should have 45-75, Women about 30-65 per meal, and snacks are recommend to be 13-30 grams each. [employer] is a good source for meal planning and dietary education. You may also refer to the [place] [employer] website for further low sodium, health heart diet information. [place] diet would be a suitable diet for your current health conditions. Related to Body mass index [BMI] 50.0-59.9, adult Eat foods rich in B- 12. Additional oral B12 replacement if indicated. Related to Vitamin B12 deficiency Giving encouragement to exercise Related to Body mass index [BMI] 50.0-59.9, adult Lifestyle education regarding di et Related to Body mass index [BMI] 50.0-59.9, adult Patient instructed o f the importance of taking medications as prescribed, following a low salt diet as well as getting physical activity as tolerated. Patient advised to keep BP log daily checking each morning and before bed. Patient to call the clinic if systolic blood pressure is greater than 150 and/or diastolic blood pressure is staying greater than 90. Related to Essential (primary) hypertension Patient educated on the importance of maintaining glycemic control. Counseled on diet, exercise and other lifestyle factors that can impact glucose control. Patient aware of the importance of diabetic eye exams, dental check ups, foot exams and diabetic foot care. Patient verbalized understanding. Related to Prediabetes B-12 injection given in office today. Eat foods rich in B-12. Additional oral B12 replacement if indicated. Related to Vitamin B12 deficiency Giving encouragement to exercise Related to Body mass index [BMI] 50.0-59.9, adult Lifestyle education regarding di et Related to Body mass index [BMI] 50.0-59.9, adult Patient currently do ing well. BP in goal range. No medication changes. Patient instructed to follow a low salt diet, continuing taking blood pressure medications as prescribed. Keep routine follow up with clinic. Related to Essential (primary) hypertension Take all antibiotics until complete. May take with food to ease stomach irritation. If you experience frequent yeast infections, you may consider taking an OTC probiotic like culturell or align while taking antibiotics, or eating yogurt (daily) with active cultures. Related to Acute sinusitis, unspecified Giving encouragement to exercise Related to Body mass index [BMI] 45.0-49.9, adult Lifestyle education regarding di et Related to Body mass index [BMI] 45.0-49.9, adult Dietary Instructions for a healthy weight: BMI should be between the range of 18.5-24.9 for an adult; and Caloric intake should be around 3247-1641 for a female, and 9799-1402 for an adult male. Fiber intake should be about 14 grams for 1000 calories per day. That is about 20-30 grams daily. Good sources of fiber are oatmeal, fortified grains, and green leafy vegetables, apples. You can also use Carbohydrate counting to maintain a healthy weight. One serving is equal to 15 grams (1 piece of bread, small fruit, or 1 cup of milk). Men should have 45-75, Women about 30-65 per meal, and snacks are recommend to be 13-30 grams each. [employer] is a good source for meal planning and dietary education. You may also refer to the [place] [employer] website for further low sodium, health heart diet information. [place] diet would be a suitable diet for your current health conditions. Weight loss is recommend. Being active is an essential part of being healthy. Physical activity as tolerated. Try to engage in some form of moderate physical activity for 30 minutes most days of the week. May modify activity as needed to reduce discomfort. Try to achieve/maintain a healthy body weight to reduce strain on musculoskeletal system. Verbalizes understanding. Related to Obesity Patient instructed o f the importance of taking medications as prescribed, following a low salt diet as well as getting physical activity as tolerated. Patient advised to keep BP log daily checking each morning and before bed. Patient to call the clinic if systolic blood pressure is greater than 150 and/or diastolic blood pressure is staying greater than 90. Related to Essential (primary) hypertension Giving encouragement to exercise Related to Body mass index [BMI] 45.0-49.9, adult Lifestyle education regarding di et Related to Body mass index [BMI] 45.0-49.9, adult Congratulations quit ting smoking!Keep up the good work! Related to Nicotine dependence, cigarettes, in remission Take medication gadiel y at the same time, and on an empty stomach. Get adequate rest daily and 30 minutes of moderate exercise most days of the week. Related to Hypothyroidism, unspecified Physical activity as tolerated. Try to engage in some form of moderate physical activity for 30 minutes most days of the week. May modify activity as needed to reduce discomfort. Try to achieve/maintain a healthy body weight to reduce strain on musculoskeletal system. Verbalizes an understanding. Related to Body mass index [BMI] 50.0-59.9, adult Patient instructed o f the importance of taking medications as prescribed, following a low salt diet as well as getting physical activity as tolerated. Patient advised to keep BP log daily checking each morning and before bed. Patient to call the clinic if systolic blood pressure is greater than 150 and/or diastolic blood pressure is staying greater than 90. Related to Essential (primary) hypertension Cardiac clearmilla cam eeded for surgeryEKG was borderline today in office Related to Abnormal EKG Dietary Instructions for a healthy weight: BMI should be between the range of 18.5-24.9 for an adult; and Caloric intake should be around 2380-6361 for a female, and 7514-6663 for an adult male. Fiber intake should be about 14 grams for 1000 calories per day. That is about 20-30 grams daily. Good sources of fiber are oatmeal, fortified grains, and green leafy vegetables, apples. You can also use Carbohydrate counting to maintain a healthy weight. One serving is equal to 15 grams (1 piece of bread, small fruit, or 1 cup of milk). Men should have 45-75, Women about 30-65 per meal, and snacks are recommend to be 13-30 grams each. [employer] is a good source for meal planning and dietary education. You may also refer to the [place] [employer] website for further low sodium, health heart diet information. [place] diet would be a suitable diet for your current health conditions.Weight loss recommended through diet and low impact exercise Related to Obesity Giving encouragement to exercise Related to Body mass index [BMI] 50.0-59.9, adult Lifestyle education regarding di et Related to Body mass index [BMI] 50.0-59.9, adult Patient instructed t o continue current medication regimen. Patient instructed to avoid tobacco smoke, vaping and other environmental smoke exposure. Exertional activity as tolerated to maintain lung function. Discussed signs and symptoms with COPD exacerbation, patient instructed to contact the clinic if he or she shows any signs or symptoms of COPD exacerbation. Related to COPD Physical activity as tolerated. Try to engage in some form of moderate physical activity for 30 minutes most days of the week. May modify activity as needed to reduce discomfort. Try to achieve/maintain a healthy body weight to reduce strain on musculoskeletal system. Verbalizes an understanding. Related to Body mass index [BMI] 45.0-49.9, adult Low fat, low cholest nereyda diet. Avoid fatty, fried, and greasy foods. Physical activity as tolerated. Related to ZAMUDIO If you have uncontro llable abdominal pain, fever of vomting, go to [facility] upcoming appt w/ Dr. Rojelio Mendes GI referral made today Related to Umbilical hernia w/o obstruction Dietary Instructions for a healthy weight: BMI should be between the range of 18.5-24.9 for an adult; and Caloric intake should be around 5874-2281 for a female, and 1596-8516 for an adult male. Fiber intake should be about 14 grams for 1000 calories per day. That is about 20-30 grams daily. Good sources of fiber are oatmeal, fortified grains, and green leafy vegetables, apples. You can also use Carbohydrate counting to maintain a healthy weight. One serving is equal to 15 grams (1 piece of bread, small fruit, or 1 cup of milk). Men should have 45-75, Women about 30-65 per meal, and snacks are recommend to be 13-30 grams each. [employer] Motion.gov is a good source for meal planning and dietary education. You may also refer to the [place] [employer] website for further low sodium, health heart diet information. Mediterainian diet would be a suitable diet for your current health conditions. Weight loss is recommend. Being active is an essential part of being healthy. Physical activity as tolerated. Try to engage in some form of moderate physical activity for 30 minutes most days of the week. May modify activity as needed to reduce discomfort. Try to achieve/maintain a healthy body weight to reduce strain on musculoskeletal system. Verbalizes understanding. Related to Obesity Patient instructed o f the importance of taking medications as prescribed, following a low salt diet as well as getting physical activity as tolerated. Patient advised to keep BP log daily checking each morning and before bed. Patient to call the clinic if systolic blood pressure is greater than 150 and/or diastolic blood pressure is staying greater than 90. Related to Essential (primary) hypertension B-12 injection given in office today. Eat foods rich in B-12. Additional oral B12 replacement if indicated. Related to Vitamin B12 deficiency Giving encouragement to exercise Related to Body mass index [BMI] 45.0-49.9, adult Lifestyle education regarding di et Related to Body mass index [BMI] 45.0-49.9, adult 15 minutes of sun ex posure daily to naturally raise vitamin D levels Related to Vitamin D deficiency It is recommended to stop smoking/vaping to increase overall health and decrease risk of cardiovascular disease. If you wish to stop smoking/vaping, there is a free online [place] from smoking course offered through our local health department. You may call [phone] for more information.Use nicotine patches as instructed.RTC 1 month for f/u Related to Nicotine dependence, cigarettes, uncomplicated fasting labs collected today Rel ated to Encntr screen for dis of the bld/bld-form org/immun mechnsm flu vaccine today Related to Enc ounter for immunization Drink plenty of flui ds. Use nasal saline rinses. Nasal steroid spray if tolerated. Antihistamines as needed. Avoid allergy triggers when possible. Related to Other seasonal allergic rhinitis Dietary Instructions for a healthy weight: BMI should be between the range of 18.5-24.9 for an adult; and Caloric intake should be around 2248-0104 for a female, and 2709-0543 for an adult male. Fiber intake should be about 14 grams for 1000 calories per day. That is about 20-30 grams daily. Good sources of fiber are oatmeal, fortified grains, and green leafy vegetables, apples. You can also use Carbohydrate counting to maintain a healthy weight. One serving is equal to 15 grams (1 piece of bread, small fruit, or 1 cup of milk). Men should have 45-75, Women about 30-65 per meal, and snacks are recommend to be 13-30 grams each. Myplate.gov is a good source for meal planning and dietary education. You may also refer to the [place] [employer] website for further low sodium, health heart diet information. Mediterainian diet would be a suitable diet for your current health conditions. Related to Obesity Patient instructed t o continue current medication regimen. Patient instructed to avoid tobacco smoke, vaping and other environmental smoke exposure. Exertional activity as tolerated to maintain lung function. Discussed signs and symptoms with COPD exacerbation, patient instructed to contact the clinic if he or she shows any signs or symptoms of COPD exacerbation. Related to COPD Take medication gadiel y at the same time, and on an empty stomach. Get adequate rest daily and 30 minutes of moderate exercise most days of the week. Related to Hypothyroidism, unspecified Counseled patients o n medications for reflux. Discussed lifestyle modifications including but not limited to elevating the head of the bed, limiting fatty, greasy, spicy food intake. Avoid heavy meals and caffeine intake within 2 hours of bedtime. If applicable, reduce/discontinue tobacco use and/or alcohol use, as both can make reflux symptoms worse. Drink plenty of fluids. Use nasal saline rinses. Nasal steroid spray if tolerated. Antihistamines as needed. Avoid allergy triggers when possible. Related to GERD disease w/ esophagitis, w/o bleeding Patient educated on the importance of maintaining glycemic control. Counseled on diet, exercise and other lifestyle factors that can impact glucose control. . Patient aware of the importance of diabetic eye exams, dental check ups, foot exams and diabetic foot care. Patient verbalized understanding. Related to Prediabetes Patient instructed o f the importance of taking medications as prescribed, following a low salt diet as well as getting physical activity as tolerated. Patient advised to keep BP log daily checking each morning and before bed. Patient to call the clinic if systolic blood pressure is greater than 150 and/or diastolic blood pressure is staying greater than 90. Related to Essential (primary) hypertension Giving encouragement to exercise Related to Body mass index [BMI] 45.0-49.9, adult Lifestyle education regarding di et Related to Body mass index [BMI] 45.0-49.9, adult Assessments Type Assessment Date assessment Type 2 diabetes mellitus without complications assessment Pain in right foot assessment Body mass index [BMI] 45.0-49.9, adult Mental Status Date Cognitive Assessment Orientation - Orange ed to time, place, person, situation.
--- OUTSIDE RECORDS SUMMARY | 2024-09-28 10:55 | XMS_ITS | Encounter Summary ---
Author Organization [place] [address] Care Team Providers Care Early Childhood Associate Teacher Name Role Phone Kerry Dutta APRN Primary Care Provider [phone] Reason for Referral * Consultation (Routine) - Authorization Not Needed Specialty Diagnoses / Procedures Referred By Contac t Referred To Contact General Surgery Diagnoses Umbilical hernia without obstruction and without gangrene Procedures [place] OFFICE/OP CONSLTJ NEW/EST PT MOD MDM 40 MINUTES Kerry Dutta APRN [address] [place] [address] Phone: tel: fax:[phone] Vik Franco MD [address] [place] [address] Phone: tel: fax: Referral ID Status Reason Start Date Expiration Date Visits Requested Visits Authorized [id number] Authorization Not Needed Other 04/09/2024 04/09/2025 99 99 Comments Please evaluate patient for possible hernia repair. She has had increased size of umbilical hernia that is firm, but reducible with increased pain for the past 3- 4 weeks. Hx of T2DM, ZAMUDIO, and COPD. Encounter Details Date Type Department Care Team (Late st Contact Info) Description 04/09/2024 Community Orders [facility] [place] [address] Kerry Dutta APRN [address] [place] [address] Umbilical hernia without obstruction and without gangrene (Primary Dx) Social History Tobacco Use Types Packs/Day Years Used Date Smoking Tobacco: Former Cigarettes 1 31.4 0 02/10/1991 - 06/28/2022 Smokeless Tobacco: Never Alcohol Use Standard Drinks/Week Comments Yes 0 (1 standard drink = 0.6 oz pur e alcohol) occ PHQ-2 Answer Date Recorded PHQ-2 Total Score 0 07/18/2021 Sexually Active Control Partners Comments Yes Male no condoms, s/p partial hysterectomy Comments No Sex and Gender Information Value Date Recorded Sex Assigned at Not on file Legal Sex Female 2:41 PM EST Gender Identity Not on file Sexual Orientation Not on file documented as of this encounter Functional Status * Is the person deaf or does he/she have serious difficulty hearing? Answer Date of Assessment Author No 07/18/2021 10:02 AM Mariposa Ruano CCMA * Is the person blind or does he/she have serious difficulty seeing even when wearing glasses? Answer Date of Assessment Author No 07/18/2021 10:02 AM Mariposa Ruano CCMA * Does this person have serious difficulty walking or climbing stairs? Answer Date of Assessment Author No 07/18/2021 10:02 AM Mariposa Ruano CCMA * Does this person have difficulty dressing or bathing? Answer Date of Assessment Author No 07/18/2021 10:02 AM Mariposa Ruano CCMA * Because of a physical, mental or emotional condition, does this person have difficulty doing errands alone such as visiting a doctor's office or shopping? Answer Date of Assessment Author No 07/18/2021 10:02 AM Mariposa Ruano CCMA documented as of this encounter Mental Status * Because of a physical, mental or emotional condition, does this person have serious difficulty concentrating, remembering or making decisions? Answer Entry Date Author No 07/18/2021 10:02 AM Mariposa Ruano CCMA documented in this encounter Plan of Treatment Upcoming Encounters Date Type Department Care Team (Late st Contact Info) Description 09/30/2024 9:00 AM EDT Office Visit [facility] Gen [facility]urg [address] [address] Vik Franco MD [address] [facility] [place] [id number] 03/11/2025 9:30 AM EST Office Visit [facility] Sleep Medicine [facility] [address] [facility] [address] [place] [address] Ladarius Wooten APRN [address] [place] [address] Scheduled Referrals Name Type Priority Associated Diagnoses Orde r Schedule AMB REFERRAL TO GENERAL SURGERY Outpatient Referral Routine Umbilical hernia without obstruction and without gangrene Ordered: 04/09/2024 documented as of this encounter Goals Goal Patient Goal Type Associated Problems Recent Progress Patient-Stated? Author Blood Pressure < 140/90 Blood Pressure 118/76(2024 9:33 AM EST) No Shiela Roberson MD Maintain a healthy diet, exercise regularly and maintain an ideal body weight General No Pratima Lamar RMA Stay Tobacco Free Lifestyle No Shiela Roberson MD documented as of this encounter Visit Diagnoses Diagnosis Umbilical hernia without obstruction and without gangrene- Primary documented in this encounter Care Teams Early Childhood Associate Teacher Relationship Specialty Start Date End Date Kerry Dutta APRN [address] [place] [id number] PCP - General Nurse Practitioner-Family 02/17/23 documented as of this encounter
--- NOTE | 2024-09-28 10:56 | XR_ITS ---
FINAL REPORT CLINICAL HISTORY: RT-FOOT/HEEL PAIN COMPARISON: None FINDINGS: RIGHT FOOT 3 views of the right foot were obtained. A small plantar calcaneal spur is present. Note is also made of a small accessory navicular. There is no acute fracture or dislocation. Visualized joint spaces are normally aligned. Soft tissues are unremarkable. IMPRESSION: No acute bony abnormality. Reviewed, Interpreted and Dictated by Cornelio Pace MD Transcribed by Carmelita Carvalho Authenticated and [facility]
--- OUTSIDE RECORDS SUMMARY | 2024-09-28 10:56 | XMS_ITS | Clinical Summary ---
Author Organization [facility] Address [address] [place] [address] Care Team Providers Care Zoning Assistant Name Role Phone Veda Maza JANIE Primary Care Provider [phone] Allergies Active Allergy Reactions Criticality Noted Date Comments Wound Dressing Adhesive Rash High 07/02/2019 CAN USE PAPER TAPE Medications ibuprofen 600 MG tablet TAKE 1 TABLET BY MOUTH TWICE DAILY. TAKE WITH FOOD 3 Active lisinopril 10 MG tablet Take 1 tablet (10 mg) by mouth 1 (one) time each day. 90 tablet 1 3 Active omeprazole (PriLOSEC) [address] capsule Take 1 capsule (40 mg) by mouth 1 (one) time each day. 90 capsule 1 3 Active propranolol (Inderal) 10 MG tablet Take 1 tablet (10 mg) by mouth 2 (two) times a day. 180 tablet 1 3 Active Ventolin HFA 108 (90 Base) MCG/ACT inhaler Inhale 2 puffs every 6 (six) hours if needed for wheezing or shortness of breath. 1 each 5 3 Active Advair Diskus 250-50 MCG/ACT diskus inhaler Inhale 1 puff 2 (two) times a day. Rinse mouth with water after use to reduce aftertaste and incidence of candidiasis. Do not swallow. 60 each 3 Active cetirizine (ZyrTEC) 10 MG tablet Take 1 tablet (10 mg) by mouth 1 (one) time each day. 90 tablet 1 3 Active levothyroxine (Synthroid, Levoxyl) 50 MCG tablet Take 1 tablet (50 mcg) by mouth 1 (one) time each day. 90 tablet 2 3 Active ergocalciferol 1.25 MG (81232 UT) capsule Take 1 capsule (50,000 Units) by mouth 1 (one) time per week. 12 capsule 3 Active Active Problems Problem Noted Date Diagnosed Date Hernia 11/25/2022 Prediabetes 11/25/2022 Secondary hypertension 11/25/2022 TRAM (obstructive sleep apnea) 07/18/2021 Overview (07/05/2022): Diagnosed by sleep study Last Assessment & Plan: Was not able to get CPAP due to recall It has been 9 months since initial order Will call noe to follow-up on cpap request. Obesity, Class III, BMI 40-49.9 (morbid obesity) 05/12/2020 Overview (07/05/2022): Wt Readings from Last 3 Encounters: 03/01/22 297 lb (134.7 kg) 02/28/22 297 lb (134.7 kg) 01/29/22 297 lb 12.8 oz (135.1 kg) On jardiance Saxenda sample starting longer available. We will see if we can get Dev Trulicity or Ozempic covered using prediabetes and metabolic syndrome. Reiterated diet and exercise. Last Assessment & Plan: - reviewed titration dose of saxenda. given additional samples today with a 4 week followup for accountability. COPD, mild 04/17/2020 Overview (07/05/2022): Smokes Uses advair with proair as needed Last Assessment & Plan: Improvement some with advair with decrease use of albuterol. Has sleep study and PFT scheduled. Forgot to get chest xray - will get it done at [facility]. Elevated LFTs 04/17/2020 Glucose intolerance 04/17/2020 Overview (07/05/2022): Lab Results Component Value Date HGBA1C 5.8 (H) 07/18/2021 HGBA1C 5.8 (H) 12/22/2020 HGBA1C 6.1 (H) 03/17/2020 On jardiance and saxenda. Last Assessment & Plan: Will check labs and follow-up accordingly. Vitamin D deficiency 04/17/2020 Overview (07/05/2022): On replacement. Essential hypertension 07/27/2019 Overview (07/05/2022): BP Readings from Last 3 Encounters: 07/18/21 124/82 10/03/20 112/62 08/29/20 138/82 Stable on lisinopril and inderal Hypothyroidism (acquired) 07/27/2019 Overview (07/05/2022): Synthroid 50 mcg Immunizations Immunization Administration Dates Next Due Influenza, Unspecified 12/03/2021 Influenza, injectable, MDCK, preservative free, quadrivalent 12/25/2017 Influenza, injectable, quadr ivalent, preservative free 12/18/2022,10/11/2019,10/16/2018,09/10,12/07/2015 Influenza, seasonal, injectable 11/28/19 13,02/19/2012,11/14/2011,11/19 Pneumococcal Polysaccharide PPV23 01/31/2020 Tdap 01/16/2011 Family History Medical History Relation Name Comments Lung cancer Maternal Grandfather Diabetes Maternal Grandmother Chronic Kidney Disease (NKF Classification) Mother Hypertension, benign Mother Relation Name Status Comments Maternal Grandfather Maternal Grandmother Mother Social History Tobacco Use Types Packs/Day Years Used Date Smoking Tobacco: Former Cigarettes 1 32.4 1 991 - 07/2022 Passive Smoke Exposure: Current Smokeless Tobacco: Never Tobacco Cessation:Counseling Given: Not Answered PHQ-2 Answer Date Recorded Patient Health Questionnaire-2 Score 0 11/25/2022 PHQ-2A Answer Date Recorded Depression Risk 0 11/25/2022 Comments Unknown Sex and Gender Information Value Date Recorded Sex Assigned at Not on file Legal Sex Female 8:50 PM EDT Gender Identity Not on file Sexual Orientation Not on file Last Filed Vital Signs Vital Sign Reading Time Taken Comments Blood Pressure 178/107 11/25/2022 9:23 AM EDT Pulse 67 11/25/2022 9:23 AM EDT Temperature - - Respiratory Rate - - Oxygen Saturation 96% 10/28/2022 10:42 AM EDT Inhaled Oxygen Concentration - - Weight 133 kg (293 lb 5.2 oz) 11/25/2022 9:23 AM EDT Height 165.1 cm (5' 5 ) 11/25/2022 9:23 AM EDT Body Mass Index 48.81 11/25/2022 9:23 AM EDT Plan of Treatment Health Maintenance Due Date Last Done Comments [facility]-HIV Screening 1975 [facility]-Hepatitis C Screening 1975 [facility]-Infant/Child/Adol SDOH Screenings 1975 [facility]- SDOH Screenings 1994 [facility]-Adult SDOH Screenings 1994 [facility]-Hepatitis B Vaccines (1 of 3 - 19+ 3-dose series) 06/12/1995 [id number]-[id number] Vaccine (3 - Moderna risk series) 10/17/2020 09/19/2020, 08/22/2020 [facility]-DTaP,Tdap,and Td Vaccines (2 - Td or Tdap) 01/16/2021 01/16/2011 CT Colonography 2021 FIT-DNA 2021 FIT 2021 FOBT 2021 Sigmoidoscopy 2021 [facility]-Diabetes: Hemoglobin A1C 07/06/2023 07/05/2022 [facility]-Depression Screening 11/26/2023 11/25/2022, 11/10 [facility]-Influenza Vaccine (#1) 10/11/202412/18, 12/03/2021, 10/11/2019, Additional history exists [facility]-Zoster Vaccines (1 of 2) 2026 Colonoscopy 11/08/2031 11/07/2021 [facility]-Colorectal Cancer Screening 11/08/2031 [facility]-Cervical Cancer Screening Discontinued [facility]-HPV/Cotest Discontinued 03/28/1994 [facility]-Pap Smear Discontinued 03/28/1994 [facility]-Pneumococcal Vaccine: Pediatrics (0 to 5 Years) and At-Risk Patients (6 to 49 Years) Aged Out 01/31/2020 No longer eligible based on patient's age to complete this topic [facility]-Obesity Intervention Completed 023, 10/28/2022, 07/05/2022, Additional history exists HPV Vaccines Aged Out No longer eligi ble based on patient's age to complete this topic [facility]-HIB Vaccines Aged Out No longer e ligible based on patient's age to complete this topic [facility]-Hepatitis A Vaccines Aged Out No longer eligible based on patient's age to complete this topic [facility]-IPV Vaccines Aged Out No longer e ligible based on patient's age to complete this topic [facility]-Rotavirus Vaccines Aged Out No lo nger eligible based on patient's age to complete this topic Procedures Procedure Name Priority Date/Time Associated Diagnosis Comments HEMOGLOBIN A1C Routine 07/05/2022 9:53 AM EDT Encounter to establish care Glucose intolerance Essential hypertension Obesity, Class III, BMI 40-49.9 (morbid obesity) (CMS/HCC) COLONOSCOPY EXTERNAL RESULT 11/07/2021 CYTO DATA CONVERSION Routine 03/28/1994 12:00 AM EST from Last 3 Months or Most Recently Relevant to Health Maintenance Results * (ABNORMAL) Hemoglobin A1c (07/05/2022 9:53 AM EDT) Hemoglobin A1c 5.9(H) <5.7 % 07/05/2022 2:12 PM EDT [facility] Blood Venous blood specimen / Unknown Venipuncture / Unknown 07/05/2022 9:53 AM EDT 07/05/2022 9:53 AM EDT Narrative [facility] - 07/05/2022 2:12 PM EDT HA1C Interpretive Data: Diagnosis of Diabetes: Diabetic > or = 6.5% Pre-diabetic 5.7 to 6.4% Non-diabetic < or = 5.6% Glycemic Targets for Type I and Type II Diabetics: Non- Adults <7.0% Adults <6.0% Children and Adolescents <7.5% Source: [place] [employer] Association. Standards of medical care in diabetes,2017. Diabetes Care.2017:40 (suppl 1):S1-S135. HbA1c assay performed by an ion-exchange chromatography method that is certified traceable to the DCCT. us Veda Maza APRN LAB BLOOD ORDERABLES Final Resu lt [facility] [address] [place] [address] * COLONOSCOPY EXTERNAL RESULT (11/07/2021) Anatomical Region Laterality Modality Endoscopy Narrative 11/07/2021 Ordered by an unspecified provider. us External Provider GI PROCEDURE ORDERABLES Final Result * (ABNORMAL) Cytology (03/28/1994 12:00 AM EST) 03/28/1994 03/28/1994 Narrative [facility] - 04/04/1994 12:00 AM EST [facility] MR #: [id number] [facility] [place], [place] [address] 1975 (Age: 18) FW Collect Date: 03/28/1994 00:00 Receipt Date: 03/28/1994 00:00 Page 1 DEPARTMENT OF PATHOLOGY AND LABORATORY MEDICINE CYTOPATHOLOGY REPORT Email: [email or web address] * Converted Case * This report may not match the original report format ATTENDING MD/Practitioner: David Curran Jr., Service: RECORDINGS LIBRARIAN Location: Reported: 04/04/1994 00:00 Collected: 03/28/1994 00:00 INTERPRETATION CERVICAL SCRAPE/ENDOCERVICAL BRUSH RARE ATYPICAL SQUAMOUS CELLS OF UNDETERMINED SIGNIFICANCE, FAVOR REACTIVE. SATISFACTORY FOR INTERPRETATION. SUGGEST REPEAT SMEAR IN 6 MONTHS, CLINICALLY INDICATED. Electronically Signed Out ELISHA Isbell (ASCP) Perla Huggins MD Cervical cytology is a screening test primarily for squamous cancers and precursors and has associated false negative and positive results. New technologies such as liquid based sampling may decrease but will not eliminate all false negative results. Regular screening and follow-up of unexplained clinical signs and symptoms are recommended to minimize false negative results. Please see the ASCCP website (www.asccp.org) for followup recommendations. If HPV testing was requested, correlation with the results is suggested (please call Microbiology at [phone] for results). CLINICAL INFORMATION: Menstrual History: {Not Provided} Date of Last Menstrual Period: {Not Provided} SPECIMEN DESCRIPTION: A: CERVICAL/VAGINAL SMEAR, PAP ICD: F: {Not Entered} SNOMED CODES: 1; [id number] In cases where a pathologist has signed out the report, the service has been rendered in part by a resident. The signing pathologist has performed and is responsible for the reported pathologic evaluation. us Zzzhistorical Provider LAB PATHOLOGY ORDERABL ES Final Result [facility] from Last 3 Months or Most Recently Relevant to Health Maintenance Insurance [employer] [place] Care Teams Zoning Assistant Relationship Specialty Start Date End Date Veda Maza APRN [address] [place] [address] PCP - General Family Medicine 07/05/22
--- OUTSIDE RECORDS SUMMARY | 2024-09-28 10:56 | XMS_ITS | Encounter Summary ---
Author Organization Healthcare Address [address] [place] [address] Care Team Providers Care Pipe [employer]itter [employer] Name Role Phone Veda Maza JANIE Primary Care Provider [phone] Encounter Details Date Type Department Care Team (Late st Contact Info) Description 01/29/2023 Outside Procedure External Location [address] [place] [address] Provider, Francesca Atlas Social History Tobacco Use Types Packs/Day Years Used Date Smoking Tobacco: Former Cigarettes 1 32.4 1 99 - 07/2022 Passive Smoke Exposure: Current Smokeless Tobacco: Never PHQ-2 Answer Date Recorded Patient Health Questionnaire-2 Score 0 11/25/2022 PHQ-2A Answer Date Recorded Depression Risk 0 11/25/2022 Comments Unknown Sex and Gender Information Value Date Recorded Sex Assigned at Not on file Legal Sex Female 8:50 PM EDT Gender Identity Not on file Sexual Orientation Not on file documented as of this encounter Plan of Treatment Not on file documented as of this encounter Procedures Procedure Name Priority Date/Time Associated Diagnosis Comments MR HIP RIGHT WO IV CONTRAST 01/29/2023 1:15 PM EST documented in this encounter Results * MR Hip Right wo IV Contrast (01/29/2023 1:15 PM EST) Anatomical Region Laterality Modality Hip Right Magnetic Resonan ce 01/29/2023 1:15 PM EST Narrative 02/05/2023 1:58 PM EST [address] [address] Name: MARYSE STEEL Exam Date: 01/29/2023 : 1975 Age 47 Gender: F Physician: IVET GARCIA Facility: [facility] Facility HSV: Outpatient Exam: MRI LWR EXT JOINT W/O RT MR RIGHT KNEE HISTORY: Pain. TECHNIQUE: Multiplanar MR without gadolinium enhancement. FINDINGS: ARTICULAR CARTILAGE: Mild chondromalacia of the medial and lateral compartments without a focal full-thickness articular surface defect. MARROW SIGNAL: No evidence of fracture. There is some mild edema in the medial compartment which may be reactive to the meniscal tear. JOINT FLUID: Mild joint effusion is present. MENISCI: Abnormal appearance to the medial meniscus which is somewhat medially extruded and with blunting of the free edge consistent with a tear. The lateral meniscus appears intact. LIGAMENT: The ACL and LCL are intact. Abnormal thickened appearance of the medial collateral ligament and posterior cruciate ligaments consistent with chronic sprain. The patellar tendon is intact. Quadriceps tendon is incompletely assessed within the [id number]. There is a small popliteal cyst noted. Some nonspecific prepatellar edema is also present. Medial plica is noted. IMPRESSION: Abnormal appearance to the medial meniscus which is somewhat medially extruded and with blunting of the free edge consistent with a tear. Abnormal thickened appearance of the medial collateral ligament and posterior cruciate ligaments consistent with chronic sprain. Mild chondromalacia of the medial and lateral compartments without a focal full-thickness articular surface defect. Dictated By: AIDA BYRNE Transcribed By: Aida Byrne Transcribed On: 02/05/2023 1:45 PM Electronically signed by: AIDA BYRNE 02/05/2023 Thank you for referring MARYSE STEEL to [facility]. Legally authenticated by POPE AIDA Johnston 2023-02-05 13:45:31 Procedure Note Provider, Generic Atlas - 02/05/[address] [address] Name: MARYSE STEEL Exam Date: 01/29/2023 : 1975 Age 47 Gender: F Physician: IVET GARCIA Facility: [facility] Facility HSV: Outpatient Exam: MRI LWR EXT JOINT W/O RT MR RIGHT KNEE HISTORY: Pain. TECHNIQUE: Multiplanar MR without gadolinium enhancement. FINDINGS: ARTICULAR CARTILAGE: Mild chondromalacia of the medial and lateral compartments without a focal full-thickness articular surface defect. MARROW SIGNAL: No evidence of fracture. There is some mild edema in themedial compartment which may be reactive to the meniscal tear. JOINT FLUID: Mild joint effusion is present. MENISCI: Abnormal appearance to the medial meniscus which is somewhatmedially extruded and with blunting of the free edge consistent with a tear. The lateral meniscus appears intact. LIGAMENT: The ACL and LCL are intact. Abnormal thickened appearance ofthe medial collateral ligament and posterior cruciate ligaments consistentwith chronic sprain. The patellar tendon is intact. Quadriceps tendon is incompletelyassessed within the [id number]. There is a small popliteal cyst noted. Some nonspecific prepatellar edema is also present. Medial plica is noted. IMPRESSION: Abnormal appearance to the medial meniscus which is somewhat medially extruded and with blunting of the free edge consistent with atear. Abnormal thickened appearance of the medial collateral ligament andposterior cruciate ligaments consistent with chronic sprain. Mild chondromalacia of the medial and lateral compartments without afocal full-thickness articular surface defect. Dictated By: AIDA BYRNE Transcribed By: Aida Byrne Transcribed On: 02/05/2023 1:45 PM Electronically signed by: AIDA BYRNE 02/05/2023 Thank you for referring MARYSE STEEL to [facility]. Legally authenticated by POPE AIDA Johnston 2023-02-05 13:45:31 Generic Atlas Provider IMG MRI PROCEDURES F inal Result documented in this encounter Visit Diagnoses Not on filedocumented in this encounter Additional Health Concerns Assessment Noted Time A fall risk assessment has been complete d for the patient 11/25/2022 9:23 AM EDT A Body Mass Index follow-up plan has been documented for the patient 11/25/2022 10:25 AM EDT documented as of this encounter Care Teams Pipe [employer] Relationship Specialty Start Date End Date Veda Maza, SOLDERING TECHNICIAN [address] [place] [phone] PCP - General Family Medicine 07/05/22 documented as of this encounter
--- OUTSIDE RECORDS SUMMARY | 2024-09-28 10:57 | XMS_ITS | Encounter Summary ---
Author Organization Healthcare Address [address] [place] [address] Care Team Providers Care District Home Economics Agent Name Role Phone Veda Maza STACK SUPERVISOR Primary Care Provider [phone] Encounter Details Date Type Department Care Team (Late st Contact Info) Description 10/31/2022 Outside Procedure External Location [address] [place] [address] Charles Avelar APRN [address] [place] [address] Social History Tobacco Use Types Packs/Day Years Used Date Smoking Tobacco: Former Cigarettes 1 32.4 1 991 - 07/2022 Passive Smoke Exposure: Current Smokeless Tobacco: Never PHQ-2 Answer Date Recorded Patient Health Questionnaire-2 Score 0 07/05/2022 Comments Unknown Sex and Gender Information Value Date Recorded Sex Assigned at Not on file Legal Sex Female 8:50 PM EDT Gender Identity Not on file Sexual Orientation Not on file documented as of this encounter Plan of Treatment Not on file documented as of this encounter Procedures Procedure Name Priority Date/Time Associated Diagnosis Comments CT ABDOMEN PELVIS WO IV CONTRAST 10/31/2022 10:36 AM EDT documented in this encounter Results * CT Abdomen Pelvis wo IV Contrast (10/31/2022 10:36 AM EDT) Anatomical Region Laterality Modality Abdomen, Pelvis Computed Tomogra phy 10/31/2022 10:3 6 AM EDT Narrative 10/31/2022 12:23 PM EDT [address] [address] Name: MARYSE STEEL Exam Date: 10/31/2022 : 1975 Age 47 Gender: F Physician: CHARLES AVELAR Facility: [facility] Facility HSV: Outpatient Exam: CT ABD W/O CT ABDOMEN WITHOUT CONTRAST HISTORY: Umbilical hernia COMPARISON: None . TECHNIQUE: Noncontrast exam CT abdomen: Fatty infiltration of the liver. Remainder of the solid abdominal organs are unremarkable. There is a paraumbilical hernia containing a single loop of small bowel. There is no evidence of bowel obstruction. No significant inflammatory changes adjacent to this hernia are evident.. Aorta is normal in caliber. No lymphadenopathy. CONCLUSION: 1. Paraumbilical hernia along the left aspect of the umbilicus containing a single loop of nonobstructed small bowel Dictated By: Uche Cohen Transcribed By: Uche Cohen Transcribed On: 10/31/2022 12:11 PM Electronically signed by: Uche Cohen 10/31/2022 Thank you for referring MARYSE STEEL to [facility]. Legally authenticated by SELINA Astorga 2022-10-31 12:11:52 Procedure Note Provider, [facility] 10/31/2022 [place] [id number] Name: MARYSE STEEL Exam Date: 10/31/2022 : 1975 Age 47 Gender: F Physician: CHARLES AVELAR Facility: [facility] Facility HSV: Outpatient Exam: CT ABD W/O CT ABDOMEN WITHOUT CONTRAST HISTORY: Umbilical hernia COMPARISON: None . TECHNIQUE: Noncontrast exam CT abdomen: Fatty infiltration of the liver. Remainder of the solid abdominal organs are unremarkable. There is a paraumbilical hernia containing a single loop of small bowel.There is no evidence of bowel obstruction. No significant inflammatory changes adjacent to this hernia are evident.. Aorta is normal in caliber. No lymphadenopathy. CONCLUSION: 1. Paraumbilical hernia along the left aspect of the umbilicus containinga single loop of nonobstructed small bowel Dictated By: Uche Cohen Transcribed By: Uche Cohen Transcribed On: 10/31/2022 12:11 PM Electronically signed by: Uche Cohen 10/31/2022 Thank you for referring MARYSE STEEL to [facility]. Legally authenticated by SELINA Astorga 2022-10-31 12:11:52 us Charles Avelar STACK SUPERVISOR IMG CT PROCEDURES Final Res ult documented in this encounter Visit Diagnoses Not on filedocumented in this encounter Additional Health Concerns Assessment Noted Time A Body Mass Index follow-up plan has been documented for the patient 10/28/2022 11:20 AM EDT documented as of this encounter Care Teams District Home Economics Agent Relationship Specialty Start Date End Date Veda Maza, STACK SUPERVISOR [address] [place] [phone] PCP - General Family Medicine 07/05/22 documented as of this encounter
--- OUTSIDE RECORDS SUMMARY | 2024-09-28 10:57 | XMS_ITS | Clinical Summary ---
Author Organization [facility] Address [address] [place] [address] Phone Care Team Providers Care Maintenance Helper Name Role Phone Kerry Dutta GREEN [employer] DEPARTMENT SUPERVISOR Primary Care Provider [phone] Allergies Active Allergy Reactions Criticality Noted Date Comments Adhesive Tape-Silicones Rash High 07/02/2019 CAN USE PAPER TAPE Medications Blood-Glucose Meter Misc KitIndications:G lucose intolerance Use to check sugars twice a day 1 Kit 1 Active Alcohol Swabs (ALCOHOL PADS) Top Pads, MedicatedIndicat ions:Glucose intolerance Use to check sugars twice a day 100 Each 11 1 Active Lancets Misc Misc Use to test twice daily 200 Each 3 1 Active FREESTYLE LITE STRIPS Misc StripIndications :Glucose intolerance USE TO TEST BLOOD SUGAR TWICE DAILY 100 Each 5 2 Active propranoloL (INDERAL) 10 mg Oral TabletIndication s:Essential hypertension,PTS D (post-traumatic stress disorder) TAKE ONE TABLET BY MOUTH TWICE DAILY 60 Tablet 2 3 Active LEVOthyroxine (SYNTHROID) 50 mcg Oral TabletIndication s:Hypothyroidism (acquired) Take 1 Tablet by mouth daily. 79 Tablet 3 Active cetirizine (ZYRTEC) 10 mg Oral TabletIndication s:Left chronic serous otitis media Take 1 Tablet by mouth once daily. 30 Tablet 1 3 Active ADVAIR DISKUS 250-50 mcg/dose Inhl Disk with DeviceIndication s:COPD, mild (HCC) Inhale 1 Puff into the lungs twice daily. 60 Each 1 3 Active VENTOLIN HFA 90 mcg/actuation Inhl HFA Aerosol Inhaler Inhale 2 Puffs into the lungs every 4 hours as needed for wheezing. 18 g 1 3 Active omeprazole (PRILOSEC) 40 mg Oral Capsule, Delayed Release(E.C.)Ind ications:Gastroe sophageal reflux disease Take 1 Capsule by mouth once daily. 30 Capsule 1 3 Active ibuprofen (ADVIL;MOTRIN) 600 mg Oral Tablet Take 200 mg by mouth as needed. 3 Active amLODIPine (NORVASC) 10 mg Oral Tablet Take 10 mg by mouth every evening. 3 Active lisinopriL (PRINIVIL;ZESTRI L) 40 mg Oral Tablet Take 40 mg by mouth daily. 3 Active Cholecalciferol, Vitamin D3, 50 mcg (2,000 unit) Oral Capsule take 1 capsule by mouth once daily. 4 Active ondansetron (ZOFRAN-ODT) 4 mg Oral Tablet, Rapid Dissolve DISSOLVE 1 TABLET ON THE TONGUE EVERY 8 HOURS. 4 Active metFORMIN (GLUCOPHAGE XR) 500 mg Oral ER 24 hr tablet Take 500 mg by mouth With evening meal. 5 Active Active Problems Problem Noted Date Diagnosed Date Umbilical hernia without obstruction and without gangrene 04/16/2024 Assessment & Plan (04/16/2024 2:22 PM EST): Metabolic dysfunction-associated steatohepatitis (MASH) 02/17/2023 Gastroesophageal reflux disease without esophagi tis 02/17/2023 Epigastric abdominal pain 10/09/2021 Overview (10/09/2021): Added automatically from request for surgery [id number] TRAM (obstructive sleep apnea) 07/18/2021 Overview (07/18/2021): Diagnosed by sleep study Assessment & Plan (07/18/2021 10:35 AM EDT): Was not able to get CPAP due to recall It has been 9 months since initial order Will call neo to follow-up on cpap request. Metabolic syndrome 05/12/2020 Assessment & Plan (05/12/2020 8:57 AM EDT): Started on jardiance 04/17. Took for 2 weeks but then pharmacy never filled it. Said it needed a PA and was waiting on us. Appears PA was done - will double check this and see what the issue is. Will give her another 3 week supply today. Obesity, Class III, BMI 40-49.9 (morbid obesity) 05/12/2020 Overview (03/01/2022): Wt Readings from Last 3 Encounters: 03/01/22 297 lb (134.7 kg) 02/28/22 297 lb (134.7 kg) 01/29/22 297 lb 12.8 oz (135.1 kg) On jardiance Saxenda sample starting longer available. We will see if we can get Dev Trulicity or Ozempic covered using prediabetes and metabolic syndrome. Reiterated diet and exercise. Assessment & Plan (01/29/2022 8:53 AM EST): - reviewed titration dose of saxenda. given additional samples today with a 4 week followup for accountability. Assessment & Plan (01/03/2022 6:33 PM EST): Discussed diet and exercise in depth. Will start GLP1 since this has been shown to reduce progression of ZAMUDIO and potentially reverse some changes associated with ZAMUDIO, and help with weight loss, metabolic syndrome, and prediabetes. Assessment & Plan (05/12/2020 8:58 AM EDT): BMI Readings from Last 3 Encounters: 05/12/20 46.06 kg/m 04/14/20 46.26 kg/m 03/17/20 46.20 kg/m Added eating healthy small breakfast, walking significantly more daily. Glucose intolerance 04/17/2020 Overview (01/29/2022): Lab Results Component Value Date HGBA1C 5.8 (H) 07/18/2021 HGBA1C 5.8 (H) 12/22/2020 HGBA1C 6.1 (H) 03/17/2020 On jardiance and saxenda. Assessment & Plan (07/18/2021 10:33 AM EDT): Will check labs and follow-up accordingly. Assessment & Plan (04/17/2020 12:06 AM EST): High risk of developing diabetes. Discussed diet and exercise changes. Recommend checking sugar prior to eating and then 2 hours later for one meal each day to help her adjust diet. Vitamin D deficiency 04/17/2020 Overview (07/18/2021): On replacement. COPD, mild 04/17/2020 Overview (07/18/2021): Smokes Uses advair with proair as needed Assessment & Plan (05/12/2020 8:56 AM EDT): Improvement some with advair with decrease use of albuterol. Has sleep study and PFT scheduled. Forgot to get chest xray - will get it done at [facility]. Assessment & Plan (04/17/2020 12:08 AM EST): Using albuterol more often, especially of a night. Will add advair. Recommend chest xray. Iron excess 04/17/2020 Hypothyroidism (acquired) 07/27/2019 Overview (07/18/2021): Synthroid 50 mcg Essential hypertension 07/27/2019 Overview (07/18/2021): BP Readings from Last 3 Encounters: 07/18/21 124/82 10/03/20 112/62 08/29/20 138/82 Stable on lisinopril and inderal Sebaceous cyst of breast, left 07/01/2019 Overview (07/01/2019): Added automatically from request for surgery [id number] Advanced care planning/counseling discussion Overview (03/10/2018): Wants to be full code but doesn't want prolonged ventilator or prolonged feeding tube. Wants to do whole body donation - is set up thru [facility] . Resolved Problems Problem Noted Date Diagnosed Date Resolved Date Rectal bleeding 10/09/2021 02/17/2023 Overview (10/09/2021): Added automatically from request for surgery [id number] Diarrhea 10/09/2021 02/17/2023 Overview (10/09/2021): Added automatically from request for surgery [id number] Elevated LFTs 04/17/2020 02/17/2023 Daytime somnolence 04/17/2020 Snoring 04/17/2020 07/18/2021 Orthopnea 04/17/2020 07/18/2021 Immunizations Immunization Administration Dates Next Due Influenza Vaccine, Unspecified Formulation 12/03,10/11/2019,10/16/2018 Moderna SARS-CoV-2 Vaccine 1 2+ Yrs (Light blue border) 09/19/2020,08/22/2020 Surgical History Surgery Date Site/Laterality Comments BLADDER SUSPENSION 08/30/2015 TONSILLECTOMY AND ADENOIDECTOMY LEEP 02/10/1995 - 02/10/1996 SECTION 02/11/2000 - 02/09/2001 X1 BREAST BIOPSY 07/07/2019 Left Left Breast Sebaceous Cyst Excision ; Surgeon: Ken Nobles MD; Location: [facility]; Service: General UPPER GASTROINTESTINAL ENDOSCOPY 11/07/2021 N/A Esophagogastroduodenos copy with biopsy via forceps Colonoscopy with biopsies via forceps; Surgeon: Ced Metzger MD; Location: [facility]; Service: Endoscopy COLONOSCOPY 11/07/2021 N/A Surgeon: Ced Metzger MD; Location: [facility]; Service: Endoscopy PARTIAL HYSTERECTOMY Medical History Medical History Date Comments Ulcerative colitis (HCC) Hypothyroidism HTN (hypertension) PTSD (post-traumatic stress disorder) Depression Anxiety GERD (gastroesophageal reflux disease) Insomnia Pre-diabetes 2020 Family History Medical History Relation Name Comments Stomach Cancer Brother Alcohol Abuse Father Lung Cancer Maternal Grandfather Depression Maternal Grandmother Diabetes Maternal Grandmother Diverticulitis Maternal Grandmother High Blood Pressure Maternal Grandmother Migraines Maternal Grandmother Alcohol Abuse Mother COPD Mother Depression Mother High Blood Pressure Mother Hypertension Mother Kidney Disease Mother Migraines Mother No Known Problems Paternal Grandfather No Known Problems Paternal Grandmother No Known Problems Sister 1 No Known Problems Sister 2 Allergies Neg Hx Bleeding Prob Neg Hx Cancer Neg Hx Hearing Loss Neg Hx Heart Disease Neg Hx Thyroid Disease Neg Hx Relation Name Status Comments Brother Alive Father Alive Maternal Grandfather Maternal Grandmother Mother Paternal Grandfather Paternal Grandmother Sister 1 Alive Sister 2 Alive Social History Tobacco Use Types Packs/Day Years Used Date Smoking Tobacco: Former Cigarettes 1 31.4 0 02/10/1991 - 06/28/2022 Smokeless Tobacco: Never Tobacco Cessation:Counseling Given: Not Answered Alcohol Use Standard Drinks/Week Comments Not Currently 0 (1 standard drink = 0.6 oz pur e alcohol) occ PHQ-2 Answer Date Recorded PHQ-2 Total Score 0 07/18/2021 Sexually Active Control Partners Comments Yes Male no condoms, s/p partial hysterectomy Comments No Sex and Gender Information Value Date Recorded Sex Assigned at Not on file Legal Sex Female 2:41 PM EST Gender Identity Not on file Sexual Orientation Not on file Obstetrics History Para Term AB IAB SAB Ectopic Multiple Livin g Live Births 4 4 4 3 3 Date Outcome GA Total Labor Labor/2nd/3rd Weight Sex Type Anes PTL Ashley A1 A5 Name Clin 1991 Term F Epidur al Livin g Delivery Location:[facility] 1995 Term F Epidur al Livin g Delivery Location:[place], [place] 1996 Term M None Livin g Delivery Location:[place] 2000 Term M CSP Epidur al Complications: Intolera nce Delivery Location:[place] Last Filed Vital Signs Vital Sign Reading Time Taken Comments Blood Pressure 118/76 04/15/2024 9:33 AM EST Pulse 68 04/15/2024 9:33 AM EST Temperature 36.6 C (97.9 F) 04/28/2023 10:28 AM EDT Respiratory Rate 18 04/28/2023 10:28 AM EDT Oxygen Saturation 97% 04/28/2023 10:28 AM EDT Inhaled Oxygen Concentration - - Weight 145.6 kg (321 lb) 04/15/2024 9:33 AM EST Height 165.1 cm (5' 5 ) 04/15/2024 9:33 AM EST Body Mass Index 53.42 04/15/2024 9:33 AM EST Plan of Treatment Upcoming Encounters Date Type Department Care Team (Late st Contact Info) Description 09/30/2024 9:00 AM EDT Office Visit [facility] Gen Surg [address] [address] Vik Franco MD [address] [place] [address] 03/11/2025 9:30 AM EST Office Visit [facility] Sleep Medicine [facility] [address] [facility] [address] [place] [address] Ladarius Wooten, GREEN END DEPARTMENT SUPERVISOR [address] [place] [address] Health Maintenance Due Date Last Done Comments Annual Wellness Exam 06/12/1979 Hepatitis B Vaccine (1 of 3 - 19+ 3-dose series) 06/12/1995 Cervical Cancer Screening 1997 Pap Smear 1997 HPV/Pap Cotest 2006 DTaP/TDaP/Td (2 - Td or Tdap) 01/16/2021 01/16/2011 Pneumococcal Vaccine 0-49 (2 of 2 - PCV) 01/30/2021 01/31/2020 Cologuard 2021 FIT 2021 Sigmoidoscopy 2021 Virtual Colonography 2021 COVID-19 Vaccine ( season) 2023 09/19/2020, 08/22/2020 Influenza Vaccine (#1) 2024 4, 12/18/2022, 12/03/2021, Additional history exists Breast Cancer Screening 03/26/2025 03/26/19 24, 08/03/2021, 06/23/2020, Additional history exists Colon Cancer Screening 11/08/2031 Colonoscopy 11/08/2031 11/07/2021 Meningococcal B Vaccine Aged Out No l onger eligible based on patient's age to complete this topic Goals Goal Patient Goal Type Associated Problems Recent Progress Patient-Stated? Author Blood Pressure < 140/90 Blood Pressure 118/76(2024 9:33 AM EST) No Shiela Roberson MD Maintain a healthy diet, exercise regularly and maintain an ideal body weight General No Pratima Lamar RMA Stay Tobacco Free Lifestyle No hSiela Roberson MD Medical Devices Implanted Type Area Linoleum Installer Device Identifier Shelf Expiration Date Model / Serial / Lot Bladder Sling-08/30/2015 Implanted:2015 (Quantity not on file) Procedures Procedure Name Priority Date/Time Associated Diagnosis Comments MM MAMMO DIGITAL HERMANN SCREEN BILAT Routine 03/26/2023 7:52 AM EST Screening mammogram for high-risk patient [facility] EGD-COLONOSCOPY Routine 11/07/2021 12:40 PM EDT from Last 3 Months or Most Recently Relevant to Health Maintenance Results * MM MAMMO DIGITAL HERMANN SCREEN BILAT (03/26/2023 7:52 AM EST) Anatomical Region Laterality Modality Breast Bilateral Mammography 03/27/2023 7:53 AM EST Impressions 03/27/2023 7:53 AM EST Negative ([id number]) ~ RECOMMENDATION: Routine screening mammogram in 1 year. ~ DISCLAIMER * Any patient with a palpable abnormality, unexplained by breast imaging, should be managed on clinical basis by the attending physician. * Breast imaging has a false negative rate of 15%. * The patient was notified by mail of the results of this examination. *The patient's information was entered into a reminder system with a target due date for the next mammogram, in accordance with the [employer] and the Society of Breast Imaging recommendations. Narrative 03/27/2023 7:53 AM EST Procedure:MM MAMMO DIGITAL HERMANN SCREEN BILAT ~ Reason for exam: screening, asymptomatic. Z12.31-Encounter for screening mammogram for malignant neoplasm of [id number] ~ MM MAMMO DIGITAL HERMANN SCREEN BILAT Bilateral CC and MLO view(s) were taken. There are scattered fibroglandular densities. Prior study comparison: Compared with prior studies the most recent being 08/03/21, 06/23/20 No mammographic evidence of malignancy. ~ Procedure Note Nino Magaña III, MD - 03/27/2023 Procedure:MM MAMMO DIGITAL HERMANN SCREEN BILAT ~ Reason for exam: screening, asymptomatic. Z12.31-Encounter for screening mammogram for malignant neoplasm of [id number] ~ MM MAMMO DIGITAL HERMANN SCREEN BILAT Bilateral CC and MLO view(s) were taken. There are scattered fibroglandular densities. Prior study comparison: Compared with prior studies the most recentbeing 08/03/21, 06/23/20 No mammographic evidence of malignancy. ~ IMPRESSION: Negative ([id number]) ~ RECOMMENDATION: Routine screening mammogram in 1 year. ~ DISCLAIMER * Any patient with a palpable abnormality, unexplained by breast imaging, should be managed on clinical basis by the attending physician. * Breast imaging has a false negative rate of 15%. * The patient was notified by mail of the results of this examination. *The patient's information was entered into a reminder system with atarget due date for the next mammogram, in accordance with the [employer] and the Society of Breast Imaging recommendations. us Kerry Dutta APRN IMG MAMMOGRAPHY ORDERABLES Final Result * [facility] EGD-COLONOSCOPY (11/07/2021 12:40 PM EDT) 11/07/2021 12:4 0 PM EDT Impressions [facility] - 11/07/2021 12:54 PM EDT Plan: This section is an excerpt of the full report. us Ced Metzger MD GI PROCEDURE ORDERABLES Gladys ramirez Result [facility] [address] [place] [address] from Last 3 Months or Most Recently Relevant to Health Maintenance Insurance BY [facility] [employer] BY [facility] PLAN BY [facility] Care Teams Maintenance Helper Relationship Specialty Start Date End Date Kerry Dutta APRN [address] [place], [place] [id number] [phone] PCP - General Nurse Practitioner-Family 02/17/23
--- OUTSIDE RECORDS SUMMARY | 2024-09-28 10:57 | XMS_ITS | Encounter Summary ---
Author Organization Healthcare Address [address] [place] [address] Care Team Providers Care Head Of Store Operations Name Role Phone Veda Maza APRN Primary Care Provider [phone] Encounter Details Date Type Department Care Team (Late st Contact Info) Description 10/31/2022 Orders Only External Location [address] [place] [address] Provider, External Social History Tobacco Use Types Packs/Day Years [...] Name Priority Date/Time Associated Diagnosis Comments CT OUTSIDE IMAGES 10/31/2022 11:51 AM EDT documented in this encounter Results * CT OUTSIDE IMAGES (10/31/2022 11:51 AM EDT) Anatomical Region Laterality Modality Computed Tomogra phy 10/31/2022 11:5 1 AM EDT us External Provider IMG CT PROCEDURES Final Result documented in this encounter Visit Diagnoses Not on filedocumented in this encounter Additional Health Concerns Assessment Noted Time A Body Mass Index follow-up plan has been documented for the patient 10/28/2022 11:20 AM EDT documented as of this encounter Care Teams Head Of Store Operations Relationship Specialty Start Date End Date Veda Maza APRN [address] [facility] [place] [address] PCP - General Family Medicine 07/05/22 documented as of this encounter
== END 2024-09-28 23:59 ==
LOC: RAD 10:53
PROVIDERS: PCP Nurse Practitioner Family; Visit Provider Nurse Practitioner Family
DX: M79.671 Pain in right foot (principal)
CPT/HCPCS: 73630